=== PATIENT | female | born 1930 | race Caucasian/White ===

== ENCOUNTER 2018-03-14 17:35 | Inpatient (IN) | payer MEDICARE ==
[~2018-03-14] VITALS: Ht 162.6 cm; Wt 54.6 kg
[2018-03-14 18:41] LABS: BACTERIA,URINE MOD /HPF (0-FEW); BILIRUBIN,URINE NEG (NEG); CLARITY,URINE HAZY; COLOR,URINE YELLOW; GLUCOSE,URINE NEG (NEG); NITRITE,URINE NEG (NEG); RBC,URINE 0 /HPF (0-2); SQUAMOUS EPITHELIAL CELL,UR OCC /LPF; UROBILINOGEN,URINE 2 mg/dL (0.2 mg/dL)
[2018-03-14 19:22] LABS: BASO # 0.1 x10^3/uL (0.0-0.2); BASO % 1 % (0-3); EOS # 0.2 x10^3/uL (0.0-0.7); EOS % 2 % (0-3); HEMATOCRIT 34.3 % (36.0-47.0); HEMOGLOBIN 11.2 g/dL (12.0-15.5); LYMPH # 3.2 x10^3/uL (1.0-4.8); LYMPH % 35 % (24-48); MEAN CORPUSCULAR HEMOGLOBIN 30 pg (25-35); MEAN CORPUSCULAR HGB CONC 33 g/dL (31-37); MEAN CORPUSCULAR VOLUME 93 fL (79-100); MONO # 0.8 x10^3/uL (0.0-1.1); MONO % 9 % (0-9); NEUT # 4.8 x10^3uL (1.8-7.7); NEUT % 53 % (31-73); PLATELET COUNT 262 x10^3/uL (140-400); RED CELL DISTRIBUTION WIDTH 14.1 % (11.5-14.5); WHITE BLOOD COUNT 9.1 x10^3/uL (4.0-11.0)
[2018-03-14 19:30] LABS: CALCIUM 9.2 mg/dL (8.5-10.1); CREATININE 1.6 mg/dL (0.6-1.0); GFR 30.6; MAGNESIUM 2.4 mg/dL (1.8-2.4); POTASSIUM 4.2 mmol/L (3.5-5.1)
[2018-03-14] MEDS ORDERED: ACETAMINOPHEN 325 MG TABLET PO PRN ×2 (22:00→22:15)
[2018-03-14] MEDS ORDERED: MAG HYDROX/AL HYDROX/SIMETH 30 ML ORAL.SUSP PO PRN ×2 (22:00→22:15)
[2018-03-14] MEDS ORDERED: METHYL SALICYLATE/MENTHOL TOPICAL OINTMENT 29GM TUBE. TP PRN (22:00)
[2018-03-14 22:10] LABS: VAL ACID 33 mcg/mL (50-100)
[2018-03-14] MEDS ORDERED: MEMA1CAP3 PO (22:10)
[2018-03-14] MEDS ORDERED: SACC250C PO (22:10)
[2018-03-14] MEDS ORDERED: [UNRECOGNIZED DRUG - CODE] PO (22:10)
[2018-03-14] MEDS ORDERED: QUET25TA5 PO (22:10)
[2018-03-14] MEDS ORDERED: LORA0.5T96 PO (22:10)
[2018-03-14] MEDS ORDERED: AMLO10TA4 PO (22:10)
[2018-03-14] MEDS ORDERED: BENZ1LOZ48 MM (22:10)
[2018-03-14] MEDS ORDERED: MAG-27 PO (22:10)
[2018-03-14] MEDS ORDERED: ACET325T9 PO (22:10)
[2018-03-14] MEDS ORDERED: DIVA125C2 PO ×2 (22:10)
[2018-03-14] MEDS ORDERED: SIME80TA14 PO (22:10)
[2018-03-14] MEDS ORDERED: METO-239 PO (22:10)
[2018-03-14] MEDS ORDERED: ACET500T68 PO (22:10)
[2018-03-14] MEDS ORDERED: ESOM40CA PO (22:10)
[2018-03-14] MEDS ORDERED: BENZOCAINE/MENTHOL LOZNGE 18'S BOX. MM PRN (22:15)
[2018-03-14] MEDS ORDERED: SIMETHICONE 80 MG TAB.CHEW PO PRN (22:15)
[2018-03-14] MEDS: DIVALPROEX 125 MG CAP.SPRINK PO SCH (22:47)
[2018-03-14] MEDS: ACETAMINOPHEN 500 MG TABLET PO SCH (22:47)
[2018-03-14 23:05] VITALS: BP 180/71
[2018-03-14 23:40] VITALS: BP 115/55
--- NOTE | 2018-03-15 00:30 | ED.ADGEN ---
Past History Past Medical History: Dementia, GERD, Hypertension Past Surgical History: No Surgical History Alcohol Use: None Drug Use: None Adult General Chief Complaint Chief Complaint agitation HPI HPI Patient is a 87 yo with history of dementia who [facility] with [facility] for medical clearance for psychiatric admission. Patient resides in a memory unit is parent with been aggressive and verbally insulting towards fellow patients and staff members which is unusual for patient. Recent changes in medications. No recent illnesses or hospitalizations. H/o limited due to dementia. Additional history obtained by at bedside.[] Review of Systems Review of Systems ROS as per HPI limited due to dementia All other systems were reviewed and found to be within normal limits, except as documented in this note. Allergies Allergies Allergies Coded Allergies Type Severity Reaction Last Updated Verified No Known Drug Allergies 03/14/18 No Physical Exam Physical Exam Constitutional: Well developed, well nourished, no acute distress, non-toxic appearance. [] HENT: Normocephalic, atraumatic, bilateral external ears normal, oropharynx moist. [] Eyes: PERRLA, EOMI, conjunctiva normal. [] Neck: Normal range of motion. [] Cardiovascular:Heart rate regular rhythm. [] Lungs & Thorax: Bilateral breath sounds clear to auscultation [] Abdomen: Bowel sounds normal, soft. [] Skin: Warm, dry, no erythema, no rash. [] Back: No tenderness. [] Neurologic: Alert and oriented X 1, normal motor function, normal sensory function, no focal deficits noted. [] Psychologic: Affect normal, judgement normal, mood normal. [] Current Patient Data Vital Signs Vital Signs Date Time Temp Pulse Resp B/P (MAP) Pulse Ox O2 Delivery O2 Flow Rate FiO2 03/14/18 20:07 64 20 116/88 (97) 94 Room Air 03/14/18 17:40 98.0 Lab Results Laboratory Tests Test 03/14/18 17:48 03/14/18 19:04 Urine Collection Type Unknown Urine Color Yellow Urine Clarity Hazy Urine pH 5.5 Urine Specific Fifty Six 1.020 Urine Protein 30 mg/dl (NEG-TRACE) Urine Glucose (UA) Neg mg/dL (NEG) Urine Ketones (Stick) Trace mg/dL (NEG) Urine Blood Trace (NEG) Urine Nitrite Neg (NEG) Urine Bilirubin Neg (NEG) Urine Urobilinogen Dipstick 2 mg/dL (0.2 mg/dL) Urine Leukocyte Esterase Trace (NEG) Urine RBC 0 /HPF (0-2) Urine WBC 1-4 /HPF (0-4) Urine Squamous Epithelial Cells Occ /LPF Urine Bacteria Mod /HPF (0-FEW) White Blood Count 9.1 x10^3/uL (4.0-11.0) Red Blood Count 3.70 x10^6/uL (3.50-5.40) Hemoglobin 11.2 g/dL (12.0-15.5) L Hematocrit 34.3 % (36.0-47.0) L Mean Corpuscular Volume 93 fL (79-100) Mean Corpuscular Hemoglobin 30 pg (25-35) Mean Corpuscular Hemoglobin Concent 33 g/dL (31-37) Red Cell Distribution Width 14.1 % (11.5-14.5) Platelet Count 262 x10^3/uL (140-400) Neutrophils (%) (Auto) 53 % (31-73) Lymphocytes (%) (Auto) 35 % (24-48) Monocytes (%) (Auto) 9 % (0-9) Eosinophils (%) (Auto) 2 % (0-3) Basophils (%) (Auto) 1 % (0-3) Neutrophils # (Auto) 4.8 x10^3uL (1.8-7.7) Lymphocytes # (Auto) 3.2 x10^3/uL (1.0-4.8) Monocytes # (Auto) 0.8 x10^3/uL (0.0-1.1) Eosinophils # (Auto) 0.2 x10^3/uL (0.0-0.7) Basophils # (Auto) 0.1 x10^3/uL (0.0-0.2) Sodium Level 138 mmol/L (136-145) Potassium Level 4.2 mmol/L (3.5-5.1) Chloride Level 105 mmol/L (98-107) Carbon Dioxide Level 24 mmol/L (21-32) Anion Gap 9 (6-14) Blood Urea Nitrogen 28 mg/dL (7-20) H Creatinine 1.6 mg/dL (0.6-1.0) H Estimated GFR (Cockcroft-Gault) 30.6 Glucose Level 108 mg/dL (70-99) H Calcium Level 9.2 mg/dL (8.5-10.1) Magnesium Level 2.4 mg/dL (1.8-2.4) Valproic Acid Level 33 mcg/mL (50-100) L Valproic Acid Last Dose Date 03/14/18 Valproic Acid Last Dose Time 1600 EKG EKG [EKG: reviewed] Radiology/Procedures Radiology/Procedures [] Course & Med Decision Making Course & Med Decision Making Pertinent Labs and Imaging studies reviewed. (See chart for details) [Patient medically stable for hospital admission.] Final Impression Final Impression [1. Medical evaluation for psychiatric hospital admission ] Dragon Disclaimer Dragon Disclaimer This electronic medical record was generated, in whole or in part, using a voice recognition dictation system. CRISTINA WEISS DO Mar 15, 2018 00:30
[2018-03-15 05:55] VITALS: BP 159/70
[2018-03-15] MEDS: PANTOPRAZOLE 40 MG TABLET. PO SCH ×2 (07:30→11:40)
[2018-03-15] MEDS: DONEPEZIL HCL 10 MG TABLET PO SCH ×2 (09:00→11:39)
[2018-03-15] MEDS: LACTOBACILLUS RHAMNOSUS GG 1 CAPSULE. PO SCH ×2 (09:00→11:39)
[2018-03-15] MEDS: MEMANTINE 10 MG TABLET. PO SCH ×3 (09:00→20:10)
[2018-03-15] MEDS: QUEtiapine 25 MG TABLET. PO SCH ×2 (09:00→11:39)
--- NOTE | 2018-03-15 09:32 | EKG ---
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
[2018-03-15] MEDS: LACTASE 3,000 UNIT TABLET PO PRN (11:38)
[2018-03-15] MEDS: amLODIPine BESYLATE 10 MG TABLET PO SCH (11:39)
[2018-03-15] MEDS: ACETAMINOPHEN 500 MG TABLET PO SCH ×3 (11:39→20:10)
[2018-03-15] MEDS: METOPROLOL SUCC 24HR ER 25 MG TAB.ER.24H. PO SCH (11:40)
[2018-03-15] MEDS: DIVALPROEX 125 MG CAP.SPRINK PO SCH ×2 (15:11→20:09)
[2018-03-15 16:52] VITALS: BP 151/63
[2018-03-15] MEDS: LORazepam 0.5 MG TABLET PO PRN (20:11)
--- NOTE | 2018-03-15 21:11 | PDOC ---
Exam Note: Zhang Note: Please also refer to the separate dictated note~for this date of service dictated separately.~Patient seen individually. Discussed the patient with Nursing staff reviewed the chart.~Reviewed interim history and current functioning. Reviewed vital signs,~Labs/ Radiology~and current medications noted below. Continue current treatment with the changes noted in the dictated addendum note Assessment: Vital Signs: Vital Signs Date Time Temp Pulse Resp B/P (MAP) Pulse Ox O2 Delivery O2 Flow Rate FiO2 03/15/18 16:52 99.4 62 16 151/63 (92) 95 Room Air I&O Intake and Output 03/15/18 07:00 Intake Total 0 ml Balance 0 ml Intake Oral 0 ml # Voids 1 # Bowel Movements 1 Current Medications: Meds: Current Medications Acetaminophen (Tylenol) 650 mg PRN Q6HRS PRN PO PAIN / TEMP; Start 03/14/18 at 22:00; Stop 03/14/18 at 22:25; Status DC Multi-Ingredient Ointment (Analgesic [place]) 1 noy PRN QID PRN TP MUSCLE PAIN; Start 03/14/18 at 22:00 Al Hydroxide/Mg Hydroxide (Mylanta Plus Xs) 15 ml PRN AFTMEALHC PRN PO DYSPEPSIA; Start 03/14/18 at 22:00; Stop 03/14/18 at 22:25; Status DC Magnesium Hydroxide (Milk Of Magnesia) 2,400 mg PRN QHS PRN PO CONSTIPATION; Start 03/14/18 at 22:00 Divalproex Sodium (Depakote Sprinkles) 125 mg DAILY@1600 PO Last administered on 03/15/18at 15:11; Start 03/15/18 at 16:00 Divalproex Sodium (Depakote Sprinkles) 250 mg QHS PO Last administered on at 20:09; Start 03/14/18 at 23:00 Lorazepam (Ativan) 0.5 mg PRN BID PRN PO ANXIETY / AGITATION Last administered on 03/15/18at 20:11; Start 03/14/18 at 22:30 Memantine (Namenda) 10 mg BID PO Last administered on 03/15/18at 20:10; Start at 09:00 Quetiapine Fumarate (SEROquel) 25 mg DAILY PO ; Start 03/15/18 at 09:00 Acetaminophen (Tylenol) 650 mg PRN Q4HRS PRN PO PAIN / TEMP; Start 03/14/18 at 22:15 Throat Lozenges (Cepacol Sore Throat Lozenge) 1 pedro PRN Q2HR PRN MM SORE THROAT ; Start 03/14/18 at 22:15 Metoprolol Succinate (Toprol Xl) 25 mg DAILY PO Last administered on 03/15/18at 11:40; Start 03/15/18 at 09:00 Simethicone (Gas-X) 80 mg PRN Q6HRS PRN PO GAS / BLOATING; Start 03/14/18 at 22 :15 Acetaminophen (Tylenol) 500 mg TID PO Last administered on 03/15/18at 20:10; Start 03/14/18 at 23:00 Amlodipine Besylate (Norvasc) 10 mg DAILY PO Last administered on 03/15/18at 11: 39; Start 03/15/18 at 09:00 Lactase (Lactaid) 9,000 unit TIDAC PRN PO GI SYMPTOMS Last administered on 03/15at 11:38; Start 03/14/18 at 22:15 Al Hydroxide/Mg Hydroxide (Mylanta Plus Xs) 30 ml PRN Q6HRS PRN PO DYSPEPSIA; Start 03/14/18 at 22:15 Pantoprazole Sodium (Protonix) 40 mg DAILYAC PO ; Start 03/15/18 at 07:30 Lactobacillus Rhamnosus (Culturelle) 1 cap DAILY PO ; Start 03/15/18 at 09:00 Donepezil HCl (Aricept) 10 mg DAILY PO ; Start 03/15/18 at 09:00 Influenza Virus Vaccine (Afluria Trivalent [id number] Syringe) 0.5 ml ONCE ONCE VAX IM Last administered on 03/15/18at 15:31; Start 03/15/18 at 14:15; Stop at 14:21; Status DC Active Scripts Active Reported Florastor (Saccharomyces Boulardii) 250 Mg Capsule 250 Mg PO DAILY Dairy Digest (Lactase) 9,000 Unit Tablet 9,000 Unit PO TIDAC Nexium Capsule (Esomeprazole Magnesium) 40 Mg Capsule.dr 40 Mg PO BID Namzaric 28 mg-10 mg Capsule (Memantine HCl/Donepezil HCl) 1 Each Cap.spr.24 1 Each PO DAILY Acetaminophen 500 Mg Tablet 1,000 Mg PO TID Rosalia-Lanta Liquid (Mag Hydrox/Al Hydrox/Simeth) 355 Ml Oral.susp 30 Ml PO PRN Q6HRS PRN Simethicone 80 Mg Tab.chew 80 Mg PO PRN Q6HRS PRN Cepacol Sore Throat Lozenge (Benzocaine/Menthol) 1 Each Lozenge 1 Each MM PRN Q2HR PRN Tylenol (Acetaminophen) 325 Mg Tablet 650 Mg PO PRN Q4HRS PRN Norvasc (Amlodipine Besylate) 10 Mg Tablet 10 Mg PO DAILY Metoprolol Succinate ( Xl ) (Metoprolol Succinate) 25 Mg Tab.er.24h 25 Mg PO DAILY Seroquel (Quetiapine Fumarate) 25 Mg Tablet 25 Mg PO DAILY Depakote Sprinkle (Divalproex Sodium) 125 Mg Cap.sprink 250 Mg PO QHS Depakote Sprinkle (Divalproex Sodium) 125 Mg Cap.sprink 125 Mg PO DAILY@1600 Ativan (Lorazepam) 0.5 Mg Tablet 0.5 Mg PO PRN BID PRN I have reviewed the current psychotropics carefully including drug interactions. Risk benefit ratio favors no change other than as noted in my dictated progress note. 

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
[2018-03-16 05:49] VITALS: BP 178/75
[2018-03-16] MEDS: amLODIPine BESYLATE 10 MG TABLET PO SCH (11:38)
[2018-03-16] MEDS: ACETAMINOPHEN 500 MG TABLET PO SCH ×3 (11:39→20:27)
[2018-03-16] MEDS: DONEPEZIL HCL 10 MG TABLET PO SCH (11:39)
[2018-03-16] MEDS: METOPROLOL SUCC 24HR ER 25 MG TAB.ER.24H. PO SCH (11:39)
[2018-03-16] MEDS: QUEtiapine 25 MG TABLET. PO SCH (11:39)
[2018-03-16] MEDS: LACTOBACILLUS RHAMNOSUS GG 1 CAPSULE. PO SCH (11:39)
[2018-03-16] MEDS: MEMANTINE 10 MG TABLET. PO SCH ×2 (11:39→20:28)
[2018-03-16] MEDS: PANTOPRAZOLE 40 MG TABLET. PO SCH (11:39)
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
[2018-03-16] MEDS: DIVALPROEX 125 MG CAP.SPRINK PO SCH ×2 (15:36→20:25)
[2018-03-16 16:49] VITALS: BP 143/69
[2018-03-16] MEDS: MIRTAZAPINE 7.5 MG TABLET. PO SCH (20:28)
--- NOTE | 2018-03-16 20:45 | PDOC ---
Exam Note: Zhang Note: Please also refer to the separate dictated note~for this date of service dictated separately.~Patient seen individually. Discussed the patient with Nursing staff reviewed the chart.~Reviewed interim history and current functioning. Reviewed vital signs,~Labs/ Radiology~and current medications noted below. Continue current treatment with the changes noted in the dictated addendum note Assessment: Vital Signs: Vital Signs Date Time Temp Pulse Resp B/P (MAP) Pulse Ox O2 Delivery O2 Flow Rate FiO2 03/16/18 16:49 97.6 60 18 143/69 (93) 96 03/15/18 16:52 Room Air I&O Intake and Output 03/16/18 07:00 Intake Total 480 ml Balance 480 ml Intake Oral 480 ml # Voids 1 Current Medications: Meds: Current Medications Acetaminophen (Tylenol) 650 mg PRN Q6HRS PRN PO PAIN / TEMP; Start 03/14/18 at 22:00; Stop 03/14/18 at 22:25; Status DC Multi-Ingredient Ointment (Analgesic [place]) 1 noy PRN QID PRN TP MUSCLE PAIN; Start 03/14/18 at 22:00 Al Hydroxide/Mg Hydroxide (Mylanta Plus Xs) 15 ml PRN AFTMEALHC PRN PO DYSPEPSIA; Start 03/14/18 at 22:00; Stop 03/14/18 at 22:25; Status DC Magnesium Hydroxide (Milk Of Magnesia) 2,400 mg PRN QHS PRN PO CONSTIPATION; Start 03/14/18 at 22:00 Divalproex Sodium (Depakote Sprinkles) 125 mg DAILY@1600 PO Last administered on 03/16/18at 15:36; Start 03/15/18 at 16:00; Stop 03/16/18 at 17:18; Status DC Divalproex Sodium (Depakote Sprinkles) 250 mg QHS PO Last administered on at 20:25; Start 03/14/18 at 23:00 Lorazepam (Ativan) 0.5 mg PRN BID PRN PO ANXIETY / AGITATION Last administered on 03/15/18at 20:11; Start 03/14/18 at 22:30 Memantine (Namenda) 10 mg BID PO Last administered on 03/16/18at 20:28; Start at 09:00 Quetiapine Fumarate (SEROquel) 25 mg DAILY PO Last administered on 03/16/18 11 :39; Start 03/15/18 at 09:00 Acetaminophen (Tylenol) 650 mg PRN Q4HRS PRN PO PAIN / TEMP; Start 03/14/18 at 22:15 Throat Lozenges (Cepacol Sore Throat Lozenge) 1 pedro PRN Q2HR PRN MM SORE THROAT ; Start 03/14/18 at 22:15 Metoprolol Succinate (Toprol Xl) 25 mg DAILY PO Last administered on 03/16/18at 11:39; Start 03/15/18 at 09:00 Simethicone (Gas-X) 80 mg PRN Q6HRS PRN PO GAS / BLOATING; Start 03/14/18 at 22 :15 Acetaminophen (Tylenol) 500 mg TID PO Last administered on 03/16/18 20:27; Start 03/14/18 at 23:00 Amlodipine Besylate (Norvasc) 10 mg DAILY PO Last administered on 03/16/18at 11: 38; Start 03/15/18 at 09:00 Lactase (Lactaid) 9,000 unit TIDAC PRN PO GI SYMPTOMS Last administered on 03/15 11:38; Start 03/14/18 at 22:15 Al Hydroxide/Mg Hydroxide (Mylanta Plus Xs) 30 ml PRN Q6HRS PRN PO DYSPEPSIA; Start 03/14/18 at 22:15 Pantoprazole Sodium (Protonix) 40 mg DAILYAC PO Last administered on 03/16/18at 11:39; Start 03/15/18 at 07:30 Lactobacillus Rhamnosus (Culturelle) 1 cap DAILY PO Last administered on at 11:39; Start 03/15/18 at 09:00 Donepezil HCl (Aricept) 10 mg DAILY PO Last administered on 03/16/18at 11:39; Start 03/15/18 at 09:00 Influenza Virus Vaccine (Afluria Trivalent [id number] Syringe) 0.5 ml ONCE ONCE VAX IM Last administered on 03/15/18at 15:31; Start 03/15/18 at 14:15; Stop at 14:21; Status DC Divalproex Sodium (Depakote Sprinkles) 250 mg DAILY@1600 PO ; Start 03/17/18 at 16:00 Mirtazapine (Remeron) 7.5 mg QHS PO Last administered on 03/16/18at 20:28; Start 03/16/18 at 21:00 Divalproex Sodium (Depakote Sprinkles) 125 mg DAILY PO ; Start 03/17/18 at 09:00 Active Scripts Active Reported Florastor (Saccharomyces Boulardii) 250 Mg Capsule 250 Mg PO DAILY Dairy Digest (Lactase) 9,000 Unit Tablet 9,000 Unit PO TIDAC Nexium Capsule (Esomeprazole Magnesium) 40 Mg Capsule.dr 40 Mg PO BID Namzaric 28 mg-10 mg Capsule (Memantine HCl/Donepezil HCl) 1 Each Cap.spr.24 1 Each PO DAILY Acetaminophen 500 Mg Tablet 1,000 Mg PO TID Rosalia-Lanta Liquid (Mag Hydrox/Al Hydrox/Simeth) 355 Ml Oral.susp 30 Ml PO PRN Q6HRS PRN Simethicone 80 Mg Tab.chew 80 Mg PO PRN Q6HRS PRN Cepacol Sore Throat Lozenge (Benzocaine/Menthol) 1 Each Lozenge 1 Each MM PRN Q2HR PRN Tylenol (Acetaminophen) 325 Mg Tablet 650 Mg PO PRN Q4HRS PRN Norvasc (Amlodipine Besylate) 10 Mg Tablet 10 Mg PO DAILY Metoprolol Succinate ( Xl ) (Metoprolol Succinate) 25 Mg Tab.er.24h 25 Mg PO DAILY Seroquel (Quetiapine Fumarate) 25 Mg Tablet 25 Mg PO DAILY Depakote Sprinkle (Divalproex Sodium) 125 Mg Cap.sprink 250 Mg PO QHS Depakote Sprinkle (Divalproex Sodium) 125 Mg Cap.sprink 125 Mg PO DAILY@1600 Ativan (Lorazepam) 0.5 Mg Tablet 0.5 Mg PO PRN BID PRN I have reviewed the current psychotropics carefully including drug interactions. Risk benefit ratio favors no change other than as noted in my dictated progress note. 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
[2018-03-17 06:21] VITALS: BP 160/76
[2018-03-17] MEDS: PANTOPRAZOLE 40 MG TABLET. PO SCH (07:57)
[2018-03-17] MEDS: LACTASE 3,000 UNIT TABLET PO PRN (07:57)
[2018-03-17] MEDS: amLODIPine BESYLATE 10 MG TABLET PO SCH (07:57)
[2018-03-17] MEDS: MEMANTINE 10 MG TABLET. PO SCH ×2 (07:58→19:32)
[2018-03-17] MEDS: DONEPEZIL HCL 10 MG TABLET PO SCH (07:58)
[2018-03-17] MEDS: QUEtiapine 25 MG TABLET. PO SCH (07:58)
[2018-03-17] MEDS: ACETAMINOPHEN 500 MG TABLET PO SCH ×3 (07:58→19:32)
[2018-03-17] MEDS: METOPROLOL SUCC 24HR ER 25 MG TAB.ER.24H. PO SCH (07:58)
[2018-03-17] MEDS: LACTOBACILLUS RHAMNOSUS GG 1 CAPSULE. PO SCH (07:59)
[2018-03-17] MEDS: DIVALPROEX 125 MG CAP.SPRINK PO SCH ×3 (08:04→19:32)
[2018-03-17 16:48] VITALS: BP 148/71
[2018-03-17] MEDS: MIRTAZAPINE 7.5 MG TABLET. PO SCH (19:32)
[2018-03-17] MEDS: LORazepam 0.5 MG TABLET PO PRN (20:26)
--- NOTE | 2018-03-17 20:49 | PDOC ---
Exam Note: Zhang Note: Please also refer to the separate dictated note~for this date of service dictated separately.~Patient seen individually. Discussed the patient with Nursing staff reviewed the chart.~Reviewed interim history and current functioning. Reviewed vital signs,~Labs/ Radiology~and current medications noted below. Continue current treatment with the changes noted in the dictated addendum note Assessment: Vital Signs: Vital Signs Date Time Temp Pulse Resp B/P (MAP) Pulse Ox O2 Delivery O2 Flow Rate FiO2 03/17/18 16:48 97.8 64 20 148/71 (96) 97 03/15/18 16:52 Room Air I&O Intake and Output 03/17/18 07:00 Intake Total 360 ml Balance 360 ml Intake Oral 360 ml # Voids 1 # Bowel Movements 2 Current Medications: Meds: Current Medications Acetaminophen (Tylenol) 650 mg PRN Q6HRS PRN PO PAIN / TEMP; Start 03/14/18 at 22:00; Stop 03/14/18 at 22:25; Status DC Multi-Ingredient Ointment (Analgesic [place]) 1 noy PRN QID PRN TP MUSCLE PAIN; Start 03/14/18 at 22:00 Al Hydroxide/Mg Hydroxide (Mylanta Plus Xs) 15 ml PRN AFTMEALHC PRN PO DYSPEPSIA; Start 03/14/18 at 22:00; Stop 03/14/18 at 22:25; Status DC Magnesium Hydroxide (Milk Of Magnesia) 2,400 mg PRN QHS PRN PO CONSTIPATION; Start 03/14/18 at 22:00 Divalproex Sodium (Depakote Sprinkles) 125 mg DAILY@1600 PO Last administered on 03/16/18at 15:36; Start 03/15/18 at 16:00; Stop 03/16/18 at 17:18; Status DC Divalproex Sodium (Depakote Sprinkles) 250 mg QHS PO Last administered on at 19:32; Start 03/14/18 at 23:00 Lorazepam (Ativan) 0.5 mg PRN BID PRN PO ANXIETY / AGITATION Last administered on 03/17/18at 20:26; Start 03/14/18 at 22:30 Memantine (Namenda) 10 mg BID PO Last administered on 03/17/18at 19:32; Start at 09:00 Quetiapine Fumarate (SEROquel) 25 mg DAILY PO Last administered on 03/17/18at 07 :58; Start 03/15/18 at 09:00 Acetaminophen (Tylenol) 650 mg PRN Q4HRS PRN PO PAIN / TEMP; Start 03/14/18 at 22:15 Throat Lozenges (Cepacol Sore Throat Lozenge) 1 pedro PRN Q2HR PRN MM SORE THROAT ; Start 03/14/18 at 22:15 Metoprolol Succinate (Toprol Xl) 25 mg DAILY PO Last administered on 03/17/18at 07:58; Start 03/15/18 at 09:00 Simethicone (Gas-X) 80 mg PRN Q6HRS PRN PO GAS / BLOATING; Start 03/14/18 at 22 :15 Acetaminophen (Tylenol) 500 mg TID PO Last administered on 03/17/18at 19:32; Start 03/14/18 at 23:00 Amlodipine Besylate (Norvasc) 10 mg DAILY PO Last administered on 03/17/18at 07: 57; Start 03/15/18 at 09:00 Lactase (Lactaid) 9,000 unit TIDAC PRN PO GI SYMPTOMS Last administered on 03/17 07:57; Start 03/14/18 at 22:15 Al Hydroxide/Mg Hydroxide (Mylanta Plus Xs) 30 ml PRN Q6HRS PRN PO DYSPEPSIA; Start 03/14/18 at 22:15 Pantoprazole Sodium (Protonix) 40 mg DAILYAC PO Last administered on 03/17/18at 07:57; Start 03/15/18 at 07:30 Lactobacillus Rhamnosus (Culturelle) 1 cap DAILY PO Last administered on at 07:59; Start 03/15/18 at 09:00 Donepezil HCl (Aricept) 10 mg DAILY PO Last administered on 03/17/18at 07:58; Start 03/15/18 at 09:00 Influenza Virus Vaccine (Afluria Trivalent [id number] Syringe) 0.5 ml ONCE ONCE VAX IM Last administered on 03/15/18at 15:31; Start 03/15/18 at 14:15; Stop at 14:21; Status DC Divalproex Sodium (Depakote Sprinkles) 250 mg DAILY@1600 PO Last administered on 03/17/18at 18:22; Start 03/17/18 at 16:00 Mirtazapine (Remeron) 7.5 mg QHS PO Last administered on 03/17/18at 19:32; Start 03/16/18 at 21:00 Divalproex Sodium (Depakote Sprinkles) 125 mg DAILY PO Last administered on at 08:04; Start 03/17/18 at 09:00 Sertraline HCl (Zoloft) 25 mg DAILY PO ; Start 03/18/18 at 09:00 Active Scripts Active Reported Florastor (Saccharomyces Boulardii) 250 Mg Capsule 250 Mg PO DAILY Dairy Digest (Lactase) 9,000 Unit Tablet 9,000 Unit PO TIDAC Nexium Capsule (Esomeprazole Magnesium) 40 Mg Capsule.dr 40 Mg PO BID Namzaric 28 mg-10 mg Capsule (Memantine HCl/Donepezil HCl) 1 Each Cap.spr.24 1 Each PO DAILY Acetaminophen 500 Mg Tablet 1,000 Mg PO TID Rosalia-Lanta Liquid (Mag Hydrox/Al Hydrox/Simeth) 355 Ml Oral.susp 30 Ml PO PRN Q6HRS PRN Simethicone 80 Mg Tab.chew 80 Mg PO PRN Q6HRS PRN Cepacol Sore Throat Lozenge (Benzocaine/Menthol) 1 Each Lozenge 1 Each MM PRN Q2HR PRN Tylenol (Acetaminophen) 325 Mg Tablet 650 Mg PO PRN Q4HRS PRN Norvasc (Amlodipine Besylate) 10 Mg Tablet 10 Mg PO DAILY Metoprolol Succinate ( Xl ) (Metoprolol Succinate) 25 Mg Tab.er.24h 25 Mg PO DAILY Seroquel (Quetiapine Fumarate) 25 Mg Tablet 25 Mg PO DAILY Depakote Sprinkle (Divalproex Sodium) 125 Mg Cap.sprink 250 Mg PO QHS Depakote Sprinkle (Divalproex Sodium) 125 Mg Cap.sprink 125 Mg PO DAILY@1600 Ativan (Lorazepam) 0.5 Mg Tablet 0.5 Mg PO PRN BID PRN I have reviewed the current psychotropics carefully including drug interactions. Risk benefit ratio favors no change other than as noted in my dictated progress note. 

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
[2018-03-18 06:45] VITALS: BP 144/69
[2018-03-18] MEDS: LACTASE 3,000 UNIT TABLET PO PRN (08:00)
[2018-03-18] MEDS: PANTOPRAZOLE 40 MG TABLET. PO SCH (08:01)
[2018-03-18] MEDS: ACETAMINOPHEN 500 MG TABLET PO SCH ×3 (08:01→20:14)
[2018-03-18] MEDS: QUEtiapine 25 MG TABLET. PO SCH (08:01)
[2018-03-18] MEDS: DIVALPROEX 125 MG CAP.SPRINK PO SCH ×3 (08:01→20:13)
[2018-03-18] MEDS: LACTOBACILLUS RHAMNOSUS GG 1 CAPSULE. PO SCH (08:01)
[2018-03-18] MEDS: DONEPEZIL HCL 10 MG TABLET PO SCH (08:01)
[2018-03-18] MEDS: MEMANTINE 10 MG TABLET. PO SCH ×2 (08:01→20:13)
[2018-03-18] MEDS: amLODIPine BESYLATE 10 MG TABLET PO SCH (08:01)
[2018-03-18] MEDS: METOPROLOL SUCC 24HR ER 25 MG TAB.ER.24H. PO SCH (08:01)
[2018-03-18] MEDS: SERTRALINE 25 MG TABLET. PO SCH (08:03)
[2018-03-18 16:25] VITALS: BP 153/50
[2018-03-18] MEDS: MIRTAZAPINE 7.5 MG TABLET. PO SCH (20:13)
--- NOTE | 2018-03-18 23:02 | PDOC ---
Exam Note: Zhang Note: Please also refer to the separate dictated note~for this date of service dictated separately.~Patient seen individually. Discussed the patient with Nursing staff reviewed the chart.~Reviewed interim history and current functioning. Reviewed vital signs,~Labs/ Radiology~and current medications noted below. Continue current treatment with the changes noted in the dictated addendum note Assessment: Vital Signs: Vital Signs Date Time Temp Pulse Resp B/P (MAP) Pulse Ox O2 Delivery O2 Flow Rate FiO2 03/18/18 16:25 98.4 61 16 153/50 (84) 94 03/15/18 16:52 Room Air I&O Intake and Output 03/18/18 07:00 Intake Total 540 ml Balance 540 ml Intake Oral 540 ml # Bowel Movements 1 Current Medications: Meds: Current Medications Acetaminophen (Tylenol) 650 mg PRN Q6HRS PRN PO PAIN / TEMP; Start 03/14/18 at 22:00; Stop 03/14/18 at 22:25; Status DC Multi-Ingredient Ointment (Analgesic [place]) 1 noy PRN QID PRN TP MUSCLE PAIN; Start 03/14/18 at 22:00 Al Hydroxide/Mg Hydroxide (Mylanta Plus Xs) 15 ml PRN AFTMEALHC PRN PO DYSPEPSIA; Start 03/14/18 at 22:00; Stop 03/14/18 at 22:25; Status DC Magnesium Hydroxide (Milk Of Magnesia) 2,400 mg PRN QHS PRN PO CONSTIPATION; Start 03/14/18 at 22:00 Divalproex Sodium (Depakote Sprinkles) 125 mg DAILY@1600 PO Last administered on 03/16/18at 15:36; Start 03/15/18 at 16:00; Stop 03/16/18 at 17:18; Status DC Divalproex Sodium (Depakote Sprinkles) 250 mg QHS PO Last administered on at 20:13; Start 03/14/18 at 23:00 Lorazepam (Ativan) 0.5 mg PRN BID PRN PO ANXIETY / AGITATION Last administered on 03/17/18at 20:26; Start 03/14/18 at 22:30 Memantine (Namenda) 10 mg BID PO Last administered on 03/18/18at 20:13; Start at 09:00 Quetiapine Fumarate (SEROquel) 25 mg DAILY PO Last administered on 03/18/18 08 :01; Start 03/15/18 at 09:00 Acetaminophen (Tylenol) 650 mg PRN Q4HRS PRN PO PAIN / TEMP; Start 03/14/18 at 22:15 Throat Lozenges (Cepacol Sore Throat Lozenge) 1 pedro PRN Q2HR PRN MM SORE THROAT ; Start 03/14/18 at 22:15 Metoprolol Succinate (Toprol Xl) 25 mg DAILY PO Last administered on 03/18/18 08:01; Start 03/15/18 at 09:00 Simethicone (Gas-X) 80 mg PRN Q6HRS PRN PO GAS / BLOATING; Start 03/14/18 at 22 :15 Acetaminophen (Tylenol) 500 mg TID PO Last administered on 03/18/18at 20:14; Start 03/14/18 at 23:00 Amlodipine Besylate (Norvasc) 10 mg DAILY PO Last administered on 03/18/18 08: 01; Start 03/15/18 at 09:00 Lactase (Lactaid) 9,000 unit TIDAC PRN PO GI SYMPTOMS Last administered on 03/18 08:00; Start 03/14/18 at 22:15 Al Hydroxide/Mg Hydroxide (Mylanta Plus Xs) 30 ml PRN Q6HRS PRN PO DYSPEPSIA; Start 03/14/18 at 22:15 Pantoprazole Sodium (Protonix) 40 mg DAILYAC PO Last administered on 03/18/18 08:01; Start 03/15/18 at 07:30 Lactobacillus Rhamnosus (Culturelle) 1 cap DAILY PO Last administered on at 08:01; Start 03/15/18 at 09:00 Donepezil HCl (Aricept) 10 mg DAILY PO Last administered on 03/18/18 08:01; Start 03/15/18 at 09:00 Influenza Virus Vaccine (Afluria Trivalent [id number] Syringe) 0.5 ml ONCE ONCE VAX IM Last administered on 03/15/18at 15:31; Start 03/15/18 at 14:15; Stop at 14:21; Status DC Divalproex Sodium (Depakote Sprinkles) 250 mg DAILY@1600 PO Last administered on 03/17/18at 18:22; Start 03/17/18 at 16:00 Mirtazapine (Remeron) 7.5 mg QHS PO Last administered on 03/18/18at 20:13; Start 03/16/18 at 21:00 Divalproex Sodium (Depakote Sprinkles) 125 mg DAILY PO Last administered on at 08:01; Start 03/17/18 at 09:00 Sertraline HCl (Zoloft) 25 mg DAILY PO Last administered on 03/18/18at 08:03; Start 03/18/18 at 09:00 Active Scripts Active Reported Florastor (Saccharomyces Boulardii) 250 Mg Capsule 250 Mg PO DAILY Dairy Digest (Lactase) 9,000 Unit Tablet 9,000 Unit PO TIDAC Nexium Capsule (Esomeprazole Magnesium) 40 Mg Capsule.dr 40 Mg PO BID Namzaric 28 mg-10 mg Capsule (Memantine HCl/Donepezil HCl) 1 Each Cap.spr.24 1 Each PO DAILY Acetaminophen 500 Mg Tablet 1,000 Mg PO TID Rosalia-Lanta Liquid (Mag Hydrox/Al Hydrox/Simeth) 355 Ml Oral.susp 30 Ml PO PRN Q6HRS PRN Simethicone 80 Mg Tab.chew 80 Mg PO PRN Q6HRS PRN Cepacol Sore Throat Lozenge (Benzocaine/Menthol) 1 Each Lozenge 1 Each MM PRN Q2HR PRN Tylenol (Acetaminophen) 325 Mg Tablet 650 Mg PO PRN Q4HRS PRN Norvasc (Amlodipine Besylate) 10 Mg Tablet 10 Mg PO DAILY Metoprolol Succinate ( Xl ) (Metoprolol Succinate) 25 Mg Tab.er.24h 25 Mg PO DAILY Seroquel (Quetiapine Fumarate) 25 Mg Tablet 25 Mg PO DAILY Depakote Sprinkle (Divalproex Sodium) 125 Mg Cap.sprink 250 Mg PO QHS Depakote Sprinkle (Divalproex Sodium) 125 Mg Cap.sprink 125 Mg PO DAILY@1600 Ativan (Lorazepam) 0.5 Mg Tablet 0.5 Mg PO PRN BID PRN I have reviewed the current psychotropics carefully including drug interactions. Risk benefit ratio favors no change other than as noted in my dictated progress note. Diagnosis: Problems: (1) Medical clearance for psychiatric admission (2) Anxiety disorder (3) Dementia, vascular, with delusions (4) Dementia, vascular, with depression (5) Dementia in Alzheimer's disease with delusions (6) Dementia in Alzheimer's disease with depression (7) Impulse control disorder ANSON CORMIER MD Mar 18, 2018 23:02
[2018-03-19] MEDS: LORazepam 0.5 MG TABLET PO PRN (02:45)
[2018-03-19 06:22] VITALS: BP 162/89
[2018-03-19] MEDS: amLODIPine BESYLATE 10 MG TABLET PO SCH (07:52)
[2018-03-19] MEDS: ACETAMINOPHEN 500 MG TABLET PO SCH ×3 (07:52→20:08)
[2018-03-19] MEDS: LACTASE 3,000 UNIT TABLET PO PRN ×2 (07:52→18:35)
[2018-03-19] MEDS: MEMANTINE 10 MG TABLET. PO SCH ×2 (07:52→20:08)
[2018-03-19] MEDS: DONEPEZIL HCL 10 MG TABLET PO SCH (07:52)
[2018-03-19] MEDS: METOPROLOL SUCC 24HR ER 25 MG TAB.ER.24H. PO SCH (07:53)
[2018-03-19] MEDS: LACTOBACILLUS RHAMNOSUS GG 1 CAPSULE. PO SCH (07:53)
[2018-03-19] MEDS: DIVALPROEX 125 MG CAP.SPRINK PO SCH ×3 (07:53→20:08)
[2018-03-19] MEDS: SERTRALINE 25 MG TABLET. PO SCH (07:53)
[2018-03-19] MEDS: PANTOPRAZOLE 40 MG TABLET. PO SCH (07:53)
[2018-03-19] MEDS: QUEtiapine 25 MG TABLET. PO SCH (07:54)
[2018-03-19 16:35] VITALS: BP 151/70
[2018-03-19] MEDS ORDERED: traZODone 50 MG TABLET. PO PRN (17:15)
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
[2018-03-19] MEDS: AMOXICILLIN/K CLAV 500/125MG TABLET. PO SCH (20:11)
[2018-03-19] MEDS: MIRTAZAPINE 15 MG TABLET PO SCH (20:11)
--- NOTE | 2018-03-19 21:04 | PDOC ---
Exam Note: Zhang Note: Please also refer to the separate dictated note~for this date of service dictated separately.~Patient seen individually. Discussed the patient with Nursing staff reviewed the chart.~Reviewed interim history and current functioning. Reviewed vital signs,~Labs/ Radiology~and current medications noted below. Continue current treatment with the changes noted in the dictated addendum note Assessment: Vital Signs: Vital Signs Date Time Temp Pulse Resp B/P (MAP) Pulse Ox O2 Delivery O2 Flow Rate FiO2 03/19/18 16:35 97.9 57 18 151/70 (97) 94 03/19/18 06:22 Room Air I&O Intake and Output 03/19/18 07:00 Intake Total 600 ml Balance 600 ml Intake Oral 600 ml Current Medications: Meds: Current Medications Acetaminophen (Tylenol) 650 mg PRN Q6HRS PRN PO PAIN / TEMP; Start 03/14/18 at 22:00; Stop 03/14/18 at 22:25; Status DC Multi-Ingredient Ointment (Analgesic [place]) 1 noy PRN QID PRN TP MUSCLE PAIN; Start 03/14/18 at 22:00 Al Hydroxide/Mg Hydroxide (Mylanta Plus Xs) 15 ml PRN AFTMEALHC PRN PO DYSPEPSIA; Start 03/14/18 at 22:00; Stop 03/14/18 at 22:25; Status DC Magnesium Hydroxide (Milk Of Magnesia) 2,400 mg PRN QHS PRN PO CONSTIPATION; Start 03/14/18 at 22:00 Divalproex Sodium (Depakote Sprinkles) 125 mg DAILY@1600 PO Last administered on 03/16/18at 15:36; Start 03/15/18 at 16:00; Stop 03/16/18 at 17:18; Status DC Divalproex Sodium (Depakote Sprinkles) 250 mg QHS PO Last administered on at 20:08; Start 03/14/18 at 23:00 Lorazepam (Ativan) 0.5 mg PRN BID PRN PO ANXIETY / AGITATION Last administered on 03/19/18at 02:45; Start 03/14/18 at 22:30 Memantine (Namenda) 10 mg BID PO Last administered on 03/19/18at 20:08; Start at 09:00 Quetiapine Fumarate (SEROquel) 25 mg DAILY PO Last administered on 03/19/18 07 :54; Start 03/15/18 at 09:00 Acetaminophen (Tylenol) 650 mg PRN Q4HRS PRN PO PAIN / TEMP; Start 03/14/18 at 22:15 Throat Lozenges (Cepacol Sore Throat Lozenge) 1 pedro PRN Q2HR PRN MM SORE THROAT ; Start 03/14/18 at 22:15 Metoprolol Succinate (Toprol Xl) 25 mg DAILY PO Last administered on 03/19/18 07:53; Start 03/15/18 at 09:00 Simethicone (Gas-X) 80 mg PRN Q6HRS PRN PO GAS / BLOATING; Start 03/14/18 at 22 :15 Acetaminophen (Tylenol) 500 mg TID PO Last administered on 03/19/18 20:08; Start 03/14/18 at 23:00 Amlodipine Besylate (Norvasc) 10 mg DAILY PO Last administered on 03/19/18 07: 52; Start 03/15/18 at 09:00 Lactase (Lactaid) 9,000 unit TIDAC PRN PO GI SYMPTOMS Last administered on 03/19at 18:35; Start 03/14/18 at 22:15 Al Hydroxide/Mg Hydroxide (Mylanta Plus Xs) 30 ml PRN Q6HRS PRN PO DYSPEPSIA; Start 03/14/18 at 22:15 Pantoprazole Sodium (Protonix) 40 mg DAILYAC PO Last administered on 03/19/18 07:53; Start 03/15/18 at 07:30 Lactobacillus Rhamnosus (Culturelle) 1 cap DAILY PO Last administered on 07:53; Start 03/15/18 at 09:00 Donepezil HCl (Aricept) 10 mg DAILY PO Last administered on 03/19/18 07:52; Start 03/15/18 at 09:00 Influenza Virus Vaccine (Afluria Trivalent [id number] Syringe) 0.5 ml ONCE ONCE VAX IM Last administered on 03/15/18at 15:31; Start 03/15/18 at 14:15; Stop at 14:21; Status DC Divalproex Sodium (Depakote Sprinkles) 250 mg DAILY@1600 PO Last administered on 03/19/18at 18:35; Start 03/17/18 at 16:00 Mirtazapine (Remeron) 7.5 mg QHS PO Last administered on 03/18/18at 20:13; Start 03/16/18 at 21:00; Stop 03/19/18 at 17:04; Status DC Divalproex Sodium (Depakote Sprinkles) 125 mg DAILY PO Last administered on at 07:53; Start 03/17/18 at 09:00 Sertraline HCl (Zoloft) 25 mg DAILY PO Last administered on 03/19/18at 07:53; Start 03/18/18 at 09:00 Mirtazapine (Remeron) 15 mg QHS PO Last administered on 03/19/18at 20:11; Start 03/19/18 at 21:00 Trazodone HCl (Desyrel) 50 mg PRN QHS PRN PO INSOMNIA, MAY REPEAT X1; Start at 17:15 Amoxicillin/ Clavulanate Potassium (Augmentin 500/ 125mg) 1 tab BID PO Last administered on 03/19/18at 20:11; Start 03/19/18 at 21:00 Active Scripts Active Reported Florastor (Saccharomyces Boulardii) 250 Mg Capsule 250 Mg PO DAILY Dairy Digest (Lactase) 9,000 Unit Tablet 9,000 Unit PO TIDAC Nexium Capsule (Esomeprazole Magnesium) 40 Mg Capsule.dr 40 Mg PO BID Namzaric 28 mg-10 mg Capsule (Memantine HCl/Donepezil HCl) 1 Each Cap.spr.24 1 Each PO DAILY Acetaminophen 500 Mg Tablet 1,000 Mg PO TID Rosalia-Lanta Liquid (Mag Hydrox/Al Hydrox/Simeth) 355 Ml Oral.susp 30 Ml PO PRN Q6HRS PRN Simethicone 80 Mg Tab.chew 80 Mg PO PRN Q6HRS PRN Cepacol Sore Throat Lozenge (Benzocaine/Menthol) 1 Each Lozenge 1 Each MM PRN Q2HR PRN Tylenol (Acetaminophen) 325 Mg Tablet 650 Mg PO PRN Q4HRS PRN Norvasc (Amlodipine Besylate) 10 Mg Tablet 10 Mg PO DAILY Metoprolol Succinate ( Xl ) (Metoprolol Succinate) 25 Mg Tab.er.24h 25 Mg PO DAILY Seroquel (Quetiapine Fumarate) 25 Mg Tablet 25 Mg PO DAILY Depakote Sprinkle (Divalproex Sodium) 125 Mg Cap.sprink 250 Mg PO QHS Depakote Sprinkle (Divalproex Sodium) 125 Mg Cap.sprink 125 Mg PO DAILY@1600 Ativan (Lorazepam) 0.5 Mg Tablet 0.5 Mg PO PRN BID PRN I have reviewed the current psychotropics carefully including drug interactions. Risk benefit ratio favors no change other than as noted in my dictated progress note. Diagnosis: Problems: (1) Medical clearance for psychiatric admission (2) Anxiety disorder (3) Dementia, vascular, with delusions (4) Dementia, vascular, with depression (5) Dementia in Alzheimer's disease with delusions (6) Dementia in Alzheimer's disease with depression (7) Impulse control disorder ANSON CORMIER MD Mar 19, 2018 21:04
[2018-03-20 06:02] VITALS: BP 178/78
[2018-03-20 07:07] LABS: BASO # 0.1 x10^3/uL (0.0-0.2); BASO % 1 % (0-3); EOS # 0.3 x10^3/uL (0.0-0.7); EOS % 4 % (0-3); HEMATOCRIT 35.2 % (36.0-47.0); HEMOGLOBIN 11.5 g/dL (12.0-15.5); LYMPH # 2.7 x10^3/uL (1.0-4.8); LYMPH % 31 % (24-48); MEAN CORPUSCULAR HEMOGLOBIN 30 pg (25-35); MEAN CORPUSCULAR HGB CONC 33 g/dL (31-37); MEAN CORPUSCULAR VOLUME 92 fL (79-100); MONO # 0.9 x10^3/uL (0.0-1.1); MONO % 10 % (0-9); NEUT # 4.7 x10^3uL (1.8-7.7); NEUT % 54 % (31-73); PLATELET COUNT 260 x10^3/uL (140-400); RED BLOOD COUNT 3.82 x10^6/uL (3.50-5.40); RED CELL DISTRIBUTION WIDTH 14.1 % (11.5-14.5); WHITE BLOOD COUNT 8.7 x10^3/uL (4.0-11.0)
[2018-03-20 07:21] LABS: ALBUMIN 3.4 g/dL (3.4-5.0); ALBUMIN/GLOBULIN RATIO 0.8 (1.0-1.7); ALK PHOS 136 U/L (46-116); ALT (SGPT) 22 U/L (14-59); ANION GAP 7 (6-14); AST (SGOT) 20 U/L (15-37); BLOOD UREA NITROGEN 33 mg/dL (7-20); BUN/CREATININE RATIO 21 (6-20); CALCIUM 9.4 mg/dL (8.5-10.1); CARBON DIOXIDE 29 mmol/L (21-32); CHLORIDE 108 mmol/L (98-107); CREATININE 1.6 mg/dL (0.6-1.0); GFR 30.6; GLUCOSE 87 mg/dL (70-99); SODIUM 144 mmol/L (136-145); TOTAL BILIRUBIN 0.3 mg/dL (0.2-1.0); TOTAL PROTEIN 7.8 g/dL (6.4-8.2)
[2018-03-20 07:27] LABS: VAL ACID 44 mcg/mL (50-100)
[2018-03-20] MEDS: LACTOBACILLUS RHAMNOSUS GG 1 CAPSULE. PO SCH (07:47)
[2018-03-20] MEDS: ACETAMINOPHEN 500 MG TABLET PO SCH ×3 (07:47→21:53)
[2018-03-20] MEDS: amLODIPine BESYLATE 10 MG TABLET PO SCH (07:51)
[2018-03-20] MEDS: AMOXICILLIN/K CLAV 500/125MG TABLET. PO SCH ×2 (07:53→21:53)
[2018-03-20] MEDS: PANTOPRAZOLE 40 MG TABLET. PO SCH (07:53)
[2018-03-20] MEDS: SERTRALINE 25 MG TABLET. PO SCH (07:53)
[2018-03-20] MEDS: METOPROLOL SUCC 24HR ER 25 MG TAB.ER.24H. PO SCH (07:53)
[2018-03-20] MEDS: LACTASE 3,000 UNIT TABLET PO PRN (07:54)
[2018-03-20] MEDS: MEMANTINE 10 MG TABLET. PO SCH ×2 (07:54→21:53)
[2018-03-20] MEDS: DIVALPROEX 125 MG CAP.SPRINK PO SCH ×3 (07:54→21:54)
[2018-03-20] MEDS: DONEPEZIL HCL 10 MG TABLET PO SCH (07:55)
[2018-03-20] MEDS: QUEtiapine 25 MG TABLET. PO SCH (07:56)
[2018-03-20 16:11] VITALS: BP 121/54
[2018-03-20] MEDS: MIRTAZAPINE 15 MG TABLET PO SCH (21:53)
--- NOTE | 2018-03-20 22:10 | PN ---
DATE: 03/18/2018 This is a late entry for 03/18/2018 covers elements not covered in my initial note. SUBJECTIVE: I met with the patient in the evening. The patient slept 5-3/4 hours previous evening, refused lunch and supper, remains quite confused. REVIEW OF SYSTEMS: Ambulation impaired with walker. No CV, , pulmonary, eye system symptoms on review. MENTAL STATUS EXAM: Oriented to herself. Insight, judgment, recent and remote memory, attention, concentration, fund of knowledge poor, consistent with her diagnosis. She is not very verbally interactive. LABORATORY DATA: Reviewed. IMPRESSION: Unchanged from initial note. PLAN: Continue current psychotropics including Zoloft 25 mg a day, Depakote along with Ativan p.r.n., Namenda, Aricept, Remeron and Seroquel. MAN Sally CORMIER MD DR: OK/onel JOB#: [id number] / [id number]
--- NOTE | 2018-03-20 22:13 | PN ---
DATE: 03/19/2018 This is a late entry for 03/19/2018 covers elements not covered in my initial note. SUBJECTIVE: I met with the patient in the evening. The patient was agitated at times, aggressive, chasing the nursing staff the previous night, slept 3-3/4 hours. On 03/19/2018, she has been up for meals, confused. REVIEW OF SYSTEMS: No CV, , pulmonary, eye, ENT system symptoms on review. Reliability poor. MENTAL STATUS EXAM: Oriented to herself. Insight, judgment, recent and remote memory, attention, concentration, fund of knowledge poor, consistent with her diagnosis mentioned in my initial note. PLAN: Start trazodone 50 mg at bedtime p.r.n., may repeat x 1 for insomnia, increase Remeron from 7.5 to 15 mg at bedtime. Continue rest of her psychotropics, Depakote, Ativan p.r.n., Namenda, Aricept, Seroquel and Zoloft. ANSON CORMIER MD DR: OK/onel JOB#: [id number] / [id number]
--- NOTE | 2018-03-20 22:46 | PDOC ---
Exam Note: Zhang Note: Please also refer to the separate dictated note~for this date of service dictated separately.~Patient seen individually. Discussed the patient with Nursing staff reviewed the chart.~Reviewed interim history and current functioning. Reviewed vital signs,~Labs/ Radiology~and current medications noted below. Continue current treatment with the changes noted in the dictated addendum note Assessment: Vital Signs: Vital Signs Date Time Temp Pulse Resp B/P (MAP) Pulse Ox O2 Delivery O2 Flow Rate FiO2 03/20/18 16:11 97.9 57 20 121/54 (76) 94 Room Air I&O Intake and Output 03/20/18 07:00 Intake Total 680 ml Balance 680 ml Intake Oral 680 ml Labs: Laboratory Tests Test 03/20/18 06:30 White Blood Count 8.7 x10^3/uL (4.0-11.0) Red Blood Count 3.82 x10^6/uL (3.50-5.40) Hemoglobin 11.5 g/dL (12.0-15.5) L Hematocrit 35.2 % (36.0-47.0) L Mean Corpuscular Volume 92 fL (79-100) Mean Corpuscular Hemoglobin 30 pg (25-35) Mean Corpuscular Hemoglobin Concent 33 g/dL (31-37) Red Cell Distribution Width 14.1 % (11.5-14.5) Platelet Count 260 x10^3/uL (140-400) Neutrophils (%) (Auto) 54 % (31-73) Lymphocytes (%) (Auto) 31 % (24-48) Monocytes (%) (Auto) 10 % (0-9) H Eosinophils (%) (Auto) 4 % (0-3) H Basophils (%) (Auto) 1 % (0-3) Neutrophils # (Auto) 4.7 x10^3uL (1.8-7.7) Lymphocytes # (Auto) 2.7 x10^3/uL (1.0-4.8) Monocytes # (Auto) 0.9 x10^3/uL (0.0-1.1) Eosinophils # (Auto) 0.3 x10^3/uL (0.0-0.7) Basophils # (Auto) 0.1 x10^3/uL (0.0-0.2) Sodium Level 144 mmol/L (136-145) Potassium Level 4.0 mmol/L (3.5-5.1) Chloride Level 108 mmol/L (98-107) H Carbon Dioxide Level 29 mmol/L (21-32) Anion Gap 7 (6-14) Blood Urea Nitrogen 33 mg/dL (7-20) H Creatinine 1.6 mg/dL (0.6-1.0) H Estimated GFR (Cockcroft-Gault) 30.6 BUN/Creatinine Ratio 21 (6-20) H Glucose Level 87 mg/dL (70-99) Calcium Level 9.4 mg/dL (8.5-10.1) Total Bilirubin 0.3 mg/dL (0.2-1.0) Aspartate Amino Transferase (AST) 20 U/L (15-37) Alanine Aminotransferase (ALT) 22 U/L (14-59) Alkaline Phosphatase 136 U/L (46-116) H Ammonia < 10 mcmol/L (11-34) L Total Protein 7.8 g/dL (6.4-8.2) Albumin 3.4 g/dL (3.4-5.0) Albumin/Globulin Ratio 0.8 (1.0-1.7) L Valproic Acid Level 44 mcg/mL (50-100) L Valproic Acid Last Dose Date 03/19/2018 Valproic Acid Last Dose Time 2100 Current Medications: Meds: Current Medications Acetaminophen (Tylenol) 650 mg PRN Q6HRS PRN PO PAIN / TEMP; Start 03/14/18 at 22:00; Stop 03/14/18 at 22:25; Status DC Multi-Ingredient Ointment (Analgesic [place]) 1 noy PRN QID PRN TP MUSCLE PAIN; Start 03/14/18 at 22:00 Al Hydroxide/Mg Hydroxide (Mylanta Plus Xs) 15 ml PRN AFTMEALHC PRN PO DYSPEPSIA; Start 03/14/18 at 22:00; Stop 03/14/18 at 22:25; Status DC Magnesium Hydroxide (Milk Of Magnesia) 2,400 mg PRN QHS PRN PO CONSTIPATION; Start 03/14/18 at 22:00 Divalproex Sodium (Depakote Sprinkles) 125 mg DAILY@1600 PO Last administered on 03/16/18at 15:36; Start 03/15/18 at 16:00; Stop 03/16/18 at 17:18; Status DC Divalproex Sodium (Depakote Sprinkles) 250 mg QHS PO Last administered on 21:54; Start 03/14/18 at 23:00 Lorazepam (Ativan) 0.5 mg PRN BID PRN PO ANXIETY / AGITATION Last administered on 03/19/18 02:45; Start 03/14/18 at 22:30 Memantine (Namenda) 10 mg BID PO Last administered on 03/20/18 21:53; Start at 09:00 Quetiapine Fumarate (SEROquel) 25 mg DAILY PO Last administered on 03/20/18 07 :56; Start 03/15/18 at 09:00 Acetaminophen (Tylenol) 650 mg PRN Q4HRS PRN PO PAIN / TEMP; Start 03/14/18 at 22:15 Throat Lozenges (Cepacol Sore Throat Lozenge) 1 pedro PRN Q2HR PRN MM SORE THROAT ; Start 03/14/18 at 22:15 Metoprolol Succinate (Toprol Xl) 25 mg DAILY PO Last administered on 03/20/18 07:53; Start 03/15/18 at 09:00 Simethicone (Gas-X) 80 mg PRN Q6HRS PRN PO GAS / BLOATING; Start 03/14/18 at 22 :15 Acetaminophen (Tylenol) 500 mg TID PO Last administered on 03/20/18 21:53; Start 03/14/18 at 23:00 Amlodipine Besylate (Norvasc) 10 mg DAILY PO Last administered on 03/20/18 07: 51; Start 03/15/18 at 09:00 Lactase (Lactaid) 9,000 unit TIDAC PRN PO GI SYMPTOMS Last administered on 03/19 18:35; Start 03/14/18 at 22:15 Al Hydroxide/Mg Hydroxide (Mylanta Plus Xs) 30 ml PRN Q6HRS PRN PO DYSPEPSIA; Start 03/14/18 at 22:15 Pantoprazole Sodium (Protonix) 40 mg DAILYAC PO Last administered on 03/20/18 07:53; Start 03/15/18 at 07:30 Lactobacillus Rhamnosus (Culturelle) 1 cap DAILY PO Last administered on 07:47; Start 03/15/18 at 09:00 Donepezil HCl (Aricept) 10 mg DAILY PO Last administered on 03/20/18at 07:55; Start 03/15/18 at 09:00 Influenza Virus Vaccine (Afluria Trivalent [id number] Syringe) 0.5 ml ONCE ONCE VAX IM Last administered on 03/15/18at 15:31; Start 03/15/18 at 14:15; Stop at 14:21; Status DC Divalproex Sodium (Depakote Sprinkles) 250 mg DAILY@1600 PO Last administered on 03/20/18at 15:00; Start 03/17/18 at 16:00 Mirtazapine (Remeron) 7.5 mg QHS PO Last administered on 03/18/18at 20:13; Start 03/16/18 at 21:00; Stop 03/19/18 at 17:04; Status DC Divalproex Sodium (Depakote Sprinkles) 125 mg DAILY PO Last administered on at 07:54; Start 03/17/18 at 09:00 Sertraline HCl (Zoloft) 25 mg DAILY PO Last administered on 03/20/18 07:53; Start 03/18/18 at 09:00 Mirtazapine (Remeron) 15 mg QHS PO Last administered on 03/20/18at 21:53; Start 03/19/18 at 21:00 Trazodone HCl (Desyrel) 50 mg PRN QHS PRN PO INSOMNIA, MAY REPEAT X1; Start at 17:15 Amoxicillin/ Clavulanate Potassium (Augmentin 500/ 125mg) 1 tab BID PO Last administered on 03/20/18at 21:53; Start 03/19/18 at 21:00 Active Scripts Active Reported Florastor (Saccharomyces Boulardii) 250 Mg Capsule 250 Mg PO DAILY Dairy Digest (Lactase) 9,000 Unit Tablet 9,000 Unit PO TIDAC Nexium Capsule (Esomeprazole Magnesium) 40 Mg Capsule.dr 40 Mg PO BID Namzaric 28 mg-10 mg Capsule (Memantine HCl/Donepezil HCl) 1 Each Cap.spr.24 1 Each PO DAILY Acetaminophen 500 Mg Tablet 1,000 Mg PO TID Rosalia-Lanta Liquid (Mag Hydrox/Al Hydrox/Simeth) 355 Ml Oral.susp 30 Ml PO PRN Q6HRS PRN Simethicone 80 Mg Tab.chew 80 Mg PO PRN Q6HRS PRN Cepacol Sore Throat Lozenge (Benzocaine/Menthol) 1 Each Lozenge 1 Each MM PRN Q2HR PRN Tylenol (Acetaminophen) 325 Mg Tablet 650 Mg PO PRN Q4HRS PRN Norvasc (Amlodipine Besylate) 10 Mg Tablet 10 Mg PO DAILY Metoprolol Succinate ( Xl ) (Metoprolol Succinate) 25 Mg Tab.er.24h 25 Mg PO DAILY Seroquel (Quetiapine Fumarate) 25 Mg Tablet 25 Mg PO DAILY Depakote Sprinkle (Divalproex Sodium) 125 Mg Cap.sprink 250 Mg PO QHS Depakote Sprinkle (Divalproex Sodium) 125 Mg Cap.sprink 125 Mg PO DAILY@1600 Ativan (Lorazepam) 0.5 Mg Tablet 0.5 Mg PO PRN BID PRN I have reviewed the current psychotropics carefully including drug interactions. Risk benefit ratio favors no change other than as noted in my dictated progress note. Diagnosis: Problems: (1) Medical clearance for psychiatric admission (2) Anxiety disorder (3) Dementia, vascular, with delusions (4) Dementia, vascular, with depression (5) Dementia in Alzheimer's disease with delusions (6) Dementia in Alzheimer's disease with depression (7) Impulse control disorder ANSON CORMIER MD Mar 20, 2018 22:46
[2018-03-21 05:45] VITALS: BP 165/84
[2018-03-21] MEDS: PANTOPRAZOLE 40 MG TABLET. PO SCH (10:06)
[2018-03-21] MEDS: DONEPEZIL HCL 10 MG TABLET PO SCH (10:06)
[2018-03-21] MEDS: LACTOBACILLUS RHAMNOSUS GG 1 CAPSULE. PO SCH (10:06)
[2018-03-21] MEDS: METOPROLOL SUCC 24HR ER 25 MG TAB.ER.24H. PO SCH (10:06)
[2018-03-21] MEDS: amLODIPine BESYLATE 10 MG TABLET PO SCH (10:07)
[2018-03-21] MEDS: MEMANTINE 10 MG TABLET. PO SCH ×2 (10:07→20:00)
[2018-03-21] MEDS: AMOXICILLIN/K CLAV 500/125MG TABLET. PO SCH ×2 (10:07→20:02)
[2018-03-21] MEDS: SERTRALINE 25 MG TABLET. PO SCH (10:07)
[2018-03-21] MEDS: ACETAMINOPHEN 500 MG TABLET PO SCH ×3 (10:07→20:02)
[2018-03-21] MEDS: QUEtiapine 25 MG TABLET. PO SCH (10:07)
[2018-03-21] MEDS: DIVALPROEX 125 MG CAP.SPRINK PO SCH ×3 (10:08→20:01)
[2018-03-21 15:45] VITALS: BP 135/82
[2018-03-21] MEDS: MIRTAZAPINE 15 MG TABLET PO SCH (20:00)
--- NOTE | 2018-03-21 20:58 | PDOC ---
Exam Note: Zhang Note: Please also refer to the separate dictated note~for this date of service dictated separately.~Patient seen individually. Discussed the patient with Nursing staff reviewed the chart.~Reviewed interim history and current functioning. Reviewed vital signs,~Labs/ Radiology~and current medications noted below. Continue current treatment with the changes noted in the dictated addendum note Assessment: Vital Signs: Vital Signs Date Time Temp Pulse Resp B/P (MAP) Pulse Ox O2 Delivery O2 Flow Rate FiO2 03/21/18 15:45 97.9 68 18 135/82 (99) 93 Room Air I&O Intake and Output 03/21/18 07:00 Intake Total 440 ml Balance 440 ml Intake Oral 440 ml Current Medications: Meds: Current Medications Acetaminophen (Tylenol) 650 mg PRN Q6HRS PRN PO PAIN / TEMP; Start 03/14/18 at 22:00; Stop 03/14/18 at 22:25; Status DC Multi-Ingredient Ointment (Analgesic [place]) 1 noy PRN QID PRN TP MUSCLE PAIN; Start 03/14/18 at 22:00 Al Hydroxide/Mg Hydroxide (Mylanta Plus Xs) 15 ml PRN AFTMEALHC PRN PO DYSPEPSIA; Start 03/14/18 at 22:00; Stop 03/14/18 at 22:25; Status DC Magnesium Hydroxide (Milk Of Magnesia) 2,400 mg PRN QHS PRN PO CONSTIPATION; Start 03/14/18 at 22:00 Divalproex Sodium (Depakote Sprinkles) 125 mg DAILY@1600 PO Last administered on 03/16/18at 15:36; Start 03/15/18 at 16:00; Stop 03/16/18 at 17:18; Status DC Divalproex Sodium (Depakote Sprinkles) 250 mg QHS PO Last administered on at 20:01; Start 03/14/18 at 23:00 Lorazepam (Ativan) 0.5 mg PRN BID PRN PO ANXIETY / AGITATION Last administered on 03/19/18at 02:45; Start 03/14/18 at 22:30 Memantine (Namenda) 10 mg BID PO Last administered on 03/21/18at 20:00; Start at 09:00 Quetiapine Fumarate (SEROquel) 25 mg DAILY PO Last administered on 03/21/18 10 :07; Start 03/15/18 at 09:00; Stop 03/21/18 at 19:16; Status DC Acetaminophen (Tylenol) 650 mg PRN Q4HRS PRN PO PAIN / TEMP; Start 03/14/18 at 22:15 Throat Lozenges (Cepacol Sore Throat Lozenge) 1 pedro PRN Q2HR PRN MM SORE THROAT ; Start 03/14/18 at 22:15 Metoprolol Succinate (Toprol Xl) 25 mg DAILY PO Last administered on 03/21/18 10:06; Start 03/15/18 at 09:00 Simethicone (Gas-X) 80 mg PRN Q6HRS PRN PO GAS / BLOATING; Start 03/14/18 at 22 :15 Acetaminophen (Tylenol) 500 mg TID PO Last administered on 03/21/18 20:02; Start 03/14/18 at 23:00 Amlodipine Besylate (Norvasc) 10 mg DAILY PO Last administered on 03/21/18 10: 07; Start 03/15/18 at 09:00 Lactase (Lactaid) 9,000 unit TIDAC PRN PO GI SYMPTOMS Last administered on 03/19at 18:35; Start 03/14/18 at 22:15 Al Hydroxide/Mg Hydroxide (Mylanta Plus Xs) 30 ml PRN Q6HRS PRN PO DYSPEPSIA; Start 03/14/18 at 22:15 Pantoprazole Sodium (Protonix) 40 mg DAILYAC PO Last administered on 03/21/18 10:06; Start 03/15/18 at 07:30 Lactobacillus Rhamnosus (Culturelle) 1 cap DAILY PO Last administered on 10:06; Start 03/15/18 at 09:00 Donepezil HCl (Aricept) 10 mg DAILY PO Last administered on 03/21/18 10:06; Start 03/15/18 at 09:00 Influenza Virus Vaccine (Afluria Trivalent [id number] Syringe) 0.5 ml ONCE ONCE VAX IM Last administered on 03/15/18at 15:31; Start 03/15/18 at 14:15; Stop at 14:21; Status DC Divalproex Sodium (Depakote Sprinkles) 250 mg DAILY@1600 PO Last administered on 03/21/18at 17:00; Start 03/17/18 at 16:00 Mirtazapine (Remeron) 7.5 mg QHS PO Last administered on 03/18/18at 20:13; Start 03/16/18 at 21:00; Stop 03/19/18 at 17:04; Status DC Divalproex Sodium (Depakote Sprinkles) 125 mg DAILY PO Last administered on at 10:08; Start 03/17/18 at 09:00 Sertraline HCl (Zoloft) 25 mg DAILY PO Last administered on 03/21/18at 10:07; Start 03/18/18 at 09:00 Mirtazapine (Remeron) 15 mg QHS PO Last administered on 03/21/18at 20:00; Start 03/19/18 at 21:00 Trazodone HCl (Desyrel) 50 mg PRN QHS PRN PO INSOMNIA, MAY REPEAT X1; Start at 17:15 Amoxicillin/ Clavulanate Potassium (Augmentin 500/ 125mg) 1 tab BID PO Last administered on 03/21/18at 20:02; Start 03/19/18 at 21:00 Quetiapine Fumarate (SEROquel) 50 mg DAILY PO ; Start 03/22/18 at 09:00 Active Scripts Active Reported Florastor (Saccharomyces Boulardii) 250 Mg Capsule 250 Mg PO DAILY Dairy Digest (Lactase) 9,000 Unit Tablet 9,000 Unit PO TIDAC Nexium Capsule (Esomeprazole Magnesium) 40 Mg Capsule.dr 40 Mg PO BID Namzaric 28 mg-10 mg Capsule (Memantine HCl/Donepezil HCl) 1 Each Cap.spr.24 1 Each PO DAILY Acetaminophen 500 Mg Tablet 1,000 Mg PO TID Rosalia-Lanta Liquid (Mag Hydrox/Al Hydrox/Simeth) 355 Ml Oral.susp 30 Ml PO PRN Q6HRS PRN Simethicone 80 Mg Tab.chew 80 Mg PO PRN Q6HRS PRN Cepacol Sore Throat Lozenge (Benzocaine/Menthol) 1 Each Lozenge 1 Each MM PRN Q2HR PRN Tylenol (Acetaminophen) 325 Mg Tablet 650 Mg PO PRN Q4HRS PRN Norvasc (Amlodipine Besylate) 10 Mg Tablet 10 Mg PO DAILY Metoprolol Succinate ( Xl ) (Metoprolol Succinate) 25 Mg Tab.er.24h 25 Mg PO DAILY Seroquel (Quetiapine Fumarate) 25 Mg Tablet 25 Mg PO DAILY Depakote Sprinkle (Divalproex Sodium) 125 Mg Cap.sprink 250 Mg PO QHS Depakote Sprinkle (Divalproex Sodium) 125 Mg Cap.sprink 125 Mg PO DAILY@1600 Ativan (Lorazepam) 0.5 Mg Tablet 0.5 Mg PO PRN BID PRN I have reviewed the current psychotropics carefully including drug interactions. Risk benefit ratio favors no change other than as noted in my dictated progress note. Diagnosis: Problems: (1) Medical clearance for psychiatric admission (2) Anxiety disorder (3) Dementia, vascular, with delusions (4) Dementia, vascular, with depression (5) Dementia in Alzheimer's disease with delusions (6) Dementia in Alzheimer's disease with depression (7) Impulse control disorder ANSON CORMIER MD Mar 21, 2018 20:58
--- NOTE | 2018-03-21 22:55 | PN ---
DATE: 03/20/2018 This late entry for 03/20/2018 covers elements not covered in my initial note. SUBJECTIVE: I met with the patient in the evening. The patient slept 7-3/4 hours previous night. She is confused, did well during the day. BUN 21. Valproic acid level 44. She gets a little anxious, restless at times. REVIEW OF SYSTEMS: No CV, , pulmonary, eye, ENT system symptoms on review. Reliability poor. She ambulates with a walker. MENTAL STATUS EXAM: Oriented to herself. Insight, judgment, recent and remote memory, attention, concentration, fund of knowledge poor, consistent with her diagnosis mentioned in my initial note. PLAN: No change from initial note. Continue Ativan p.r.n., Depakote at current dosage, Seroquel, Namenda, Aricept, Remeron, Zoloft and trazodone. Valproic acid level slightly subtherapeutic, but we will adjust this if behaviorally it is justified. ANSON CORMIER MD DR: OK/onel JOB#: [id number] / [id number]
[2018-03-22 05:37] VITALS: BP 173/83
[2018-03-22] MEDS: AMOXICILLIN/K CLAV 500/125MG TABLET. PO SCH ×2 (08:03→20:20)
[2018-03-22] MEDS: METOPROLOL SUCC 24HR ER 25 MG TAB.ER.24H. PO SCH (08:03)
[2018-03-22] MEDS: amLODIPine BESYLATE 10 MG TABLET PO SCH (08:04)
[2018-03-22] MEDS: MEMANTINE 10 MG TABLET. PO SCH ×2 (08:04→20:20)
[2018-03-22] MEDS: DONEPEZIL HCL 10 MG TABLET PO SCH (08:04)
[2018-03-22] MEDS: DIVALPROEX 125 MG CAP.SPRINK PO SCH ×3 (08:04→20:21)
[2018-03-22] MEDS: LACTOBACILLUS RHAMNOSUS GG 1 CAPSULE. PO SCH (08:05)
[2018-03-22] MEDS: ACETAMINOPHEN 500 MG TABLET PO SCH ×3 (08:05→20:21)
[2018-03-22] MEDS: SERTRALINE 25 MG TABLET. PO SCH (08:05)
[2018-03-22] MEDS: PANTOPRAZOLE 40 MG TABLET. PO SCH (08:05)
[2018-03-22] MEDS: QUEtiapine 50 MG TABLET. PO SCH (08:06)
[2018-03-22 16:23] VITALS: BP 149/70
[2018-03-22] MEDS: MIRTAZAPINE 15 MG TABLET PO SCH (20:21)
--- NOTE | 2018-03-22 20:47 | PDOC ---
Exam Note: Zhang Note: Please also refer to the separate dictated note~for this date of service dictated separately.~Patient seen individually. Discussed the patient with Nursing staff reviewed the chart.~Reviewed interim history and current functioning. Reviewed vital signs,~Labs/ Radiology~and current medications noted below. Continue current treatment with the changes noted in the dictated addendum note Assessment: Vital Signs: Vital Signs Date Time Temp Pulse Resp B/P (MAP) Pulse Ox O2 Delivery O2 Flow Rate FiO2 03/22/18 16:23 98.3 57 16 149/70 (96) 95 03/21/18 15:45 Room Air I&O Intake and Output 03/22/18 07:00 Intake Total 680 ml Balance 680 ml Intake Oral 680 ml Current Medications: Meds: Current Medications Acetaminophen (Tylenol) 650 mg PRN Q6HRS PRN PO PAIN / TEMP; Start 03/14/18 at 22:00; Stop 03/14/18 at 22:25; Status DC Multi-Ingredient Ointment (Analgesic [place]) 1 noy PRN QID PRN TP MUSCLE PAIN; Start 03/14/18 at 22:00 Al Hydroxide/Mg Hydroxide (Mylanta Plus Xs) 15 ml PRN AFTMEALHC PRN PO DYSPEPSIA; Start 03/14/18 at 22:00; Stop 03/14/18 at 22:25; Status DC Magnesium Hydroxide (Milk Of Magnesia) 2,400 mg PRN QHS PRN PO CONSTIPATION; Start 03/14/18 at 22:00 Divalproex Sodium (Depakote Sprinkles) 125 mg DAILY@1600 PO Last administered on 03/16/18at 15:36; Start 03/15/18 at 16:00; Stop 03/16/18 at 17:18; Status DC Divalproex Sodium (Depakote Sprinkles) 250 mg QHS PO Last administered on at 20:21; Start 03/14/18 at 23:00 Lorazepam (Ativan) 0.5 mg PRN BID PRN PO ANXIETY / AGITATION Last administered on 03/19/18at 02:45; Start 03/14/18 at 22:30 Memantine (Namenda) 10 mg BID PO Last administered on 03/22/18at 20:20; Start at 09:00 Quetiapine Fumarate (SEROquel) 25 mg DAILY PO Last administered on 03/21/18at 10 :07; Start 03/15/18 at 09:00; Stop 03/21/18 at 19:16; Status DC Acetaminophen (Tylenol) 650 mg PRN Q4HRS PRN PO PAIN / TEMP; Start 03/14/18 at 22:15 Throat Lozenges (Cepacol Sore Throat Lozenge) 1 pedro PRN Q2HR PRN MM SORE THROAT ; Start 03/14/18 at 22:15 Metoprolol Succinate (Toprol Xl) 25 mg DAILY PO Last administered on 03/22/18 08:03; Start 03/15/18 at 09:00 Simethicone (Gas-X) 80 mg PRN Q6HRS PRN PO GAS / BLOATING; Start 03/14/18 at 22 :15 Acetaminophen (Tylenol) 500 mg TID PO Last administered on 03/22/18at 20:21; Start 03/14/18 at 23:00 Amlodipine Besylate (Norvasc) 10 mg DAILY PO Last administered on 03/22/18at 08: 04; Start 03/15/18 at 09:00 Lactase (Lactaid) 9,000 unit TIDAC PRN PO GI SYMPTOMS Last administered on 03/19at 18:35; Start 03/14/18 at 22:15 Al Hydroxide/Mg Hydroxide (Mylanta Plus Xs) 30 ml PRN Q6HRS PRN PO DYSPEPSIA; Start 03/14/18 at 22:15 Pantoprazole Sodium (Protonix) 40 mg DAILYAC PO Last administered on 03/22/18at 08:05; Start 03/15/18 at 07:30 Lactobacillus Rhamnosus (Culturelle) 1 cap DAILY PO Last administered on at 08:05; Start 03/15/18 at 09:00 Donepezil HCl (Aricept) 10 mg DAILY PO Last administered on 03/22/18at 08:04; Start 03/15/18 at 09:00 Influenza Virus Vaccine (Afluria Trivalent [id number] Syringe) 0.5 ml ONCE ONCE VAX IM Last administered on 03/15/18at 15:31; Start 03/15/18 at 14:15; Stop at 14:21; Status DC Divalproex Sodium (Depakote Sprinkles) 250 mg DAILY@1600 PO Last administered on 03/22/18at 17:03; Start 03/17/18 at 16:00 Mirtazapine (Remeron) 7.5 mg QHS PO Last administered on 03/18/18at 20:13; Start 03/16/18 at 21:00; Stop 03/19/18 at 17:04; Status DC Divalproex Sodium (Depakote Sprinkles) 125 mg DAILY PO Last administered on at 08:04; Start 03/17/18 at 09:00 Sertraline HCl (Zoloft) 25 mg DAILY PO Last administered on 03/22/18at 08:05; Start 03/18/18 at 09:00 Mirtazapine (Remeron) 15 mg QHS PO Last administered on 03/22/18at 20:21; Start 03/19/18 at 21:00 Trazodone HCl (Desyrel) 50 mg PRN QHS PRN PO INSOMNIA, MAY REPEAT X1; Start at 17:15 Amoxicillin/ Clavulanate Potassium (Augmentin 500/ 125mg) 1 tab BID PO Last administered on 03/22/18at 20:20; Start 03/19/18 at 21:00 Quetiapine Fumarate (SEROquel) 50 mg DAILY PO Last administered on 03/22/18at 08 :06; Start 03/22/18 at 09:00 Active Scripts Active Reported Florastor (Saccharomyces Boulardii) 250 Mg Capsule 250 Mg PO DAILY Dairy Digest (Lactase) 9,000 Unit Tablet 9,000 Unit PO TIDAC Nexium Capsule (Esomeprazole Magnesium) 40 Mg Capsule.dr 40 Mg PO BID Namzaric 28 mg-10 mg Capsule (Memantine HCl/Donepezil HCl) 1 Each Cap.spr.24 1 Each PO DAILY Acetaminophen 500 Mg Tablet 1,000 Mg PO TID Rosalia-Lanta Liquid (Mag Hydrox/Al Hydrox/Simeth) 355 Ml Oral.susp 30 Ml PO PRN Q6HRS PRN Simethicone 80 Mg Tab.chew 80 Mg PO PRN Q6HRS PRN Cepacol Sore Throat Lozenge (Benzocaine/Menthol) 1 Each Lozenge 1 Each MM PRN Q2HR PRN Tylenol (Acetaminophen) 325 Mg Tablet 650 Mg PO PRN Q4HRS PRN Norvasc (Amlodipine Besylate) 10 Mg Tablet 10 Mg PO DAILY Metoprolol Succinate ( Xl ) (Metoprolol Succinate) 25 Mg Tab.er.24h 25 Mg PO DAILY Seroquel (Quetiapine Fumarate) 25 Mg Tablet 25 Mg PO DAILY Depakote Sprinkle (Divalproex Sodium) 125 Mg Cap.sprink 250 Mg PO QHS Depakote Sprinkle (Divalproex Sodium) 125 Mg Cap.sprink 125 Mg PO DAILY@1600 Ativan (Lorazepam) 0.5 Mg Tablet 0.5 Mg PO PRN BID PRN I have reviewed the current psychotropics carefully including drug interactions. Risk benefit ratio favors no change other than as noted in my dictated progress note. Diagnosis: Problems: (1) Medical clearance for psychiatric admission (2) Anxiety disorder (3) Dementia, vascular, with delusions (4) Dementia, vascular, with depression (5) Dementia in Alzheimer's disease with delusions (6) Dementia in Alzheimer's disease with depression (7) Impulse control disorder ANSON CORMIER MD Mar 22, 2018 20:47
--- NOTE | 2018-03-22 23:23 | PN ---
DATE: 03/21/2018 This is a late entry 03/21/2018 covers elements not covered in my initial note. SUBJECTIVE: I met with the patient in the evening. The patient slept 5-1/4 hours previous night. Compliant with medications, confused, sexually inappropriate with males at times, takes her medications crushed. REVIEW OF SYSTEMS: No CV, , pulmonary, eye, ENT system symptoms on review. Gait unsteady with walker. MENTAL STATUS EXAM: Oriented to herself. Insight, judgment, recent and remote memory, attention, concentration, fund of knowledge poor, consistent with her diagnosis mentioned in my initial note. PLAN: Valproic acid level was 44, subtherapeutic on the , but clinically adequate. Increase Zoloft from 25 to 50 mg a day. Continue rest per initial note. MAN Sally CORMIER MD DR: OK/onel JOB#: [id number] / [id number]
[2018-03-23 05:23] VITALS: BP 178/84
[2018-03-23] MEDS: DONEPEZIL HCL 10 MG TABLET PO SCH (08:04)
[2018-03-23] MEDS: MEMANTINE 10 MG TABLET. PO SCH ×2 (08:04→20:23)
[2018-03-23] MEDS: DIVALPROEX 125 MG CAP.SPRINK PO SCH ×3 (08:04→20:23)
[2018-03-23] MEDS: SERTRALINE 25 MG TABLET. PO SCH (08:05)
[2018-03-23] MEDS: PANTOPRAZOLE 40 MG TABLET. PO SCH (08:05)
[2018-03-23] MEDS: QUEtiapine 50 MG TABLET. PO SCH (08:05)
[2018-03-23] MEDS: AMOXICILLIN/K CLAV 500/125MG TABLET. PO SCH ×2 (08:05→20:23)
[2018-03-23] MEDS: LACTOBACILLUS RHAMNOSUS GG 1 CAPSULE. PO SCH (08:05)
[2018-03-23] MEDS: ACETAMINOPHEN 500 MG TABLET PO SCH ×3 (08:05→20:22)
[2018-03-23] MEDS: amLODIPine BESYLATE 10 MG TABLET PO SCH ×2 (08:06→20:25)
[2018-03-23] MEDS: METOPROLOL SUCC 24HR ER 25 MG TAB.ER.24H. PO SCH (08:06)
[2018-03-23 15:54] VITALS: BP 103/70
[2018-03-23] MEDS: MIRTAZAPINE 15 MG TABLET PO SCH (20:23)
--- NOTE | 2018-03-23 20:28 | PDOC ---
Exam Note: Zhang Note: Please also refer to the separate dictated note~for this date of service dictated separately.~Patient seen individually. Discussed the patient with Nursing staff reviewed the chart.~Reviewed interim history and current functioning. Reviewed vital signs,~Labs/ Radiology~and current medications noted below. Continue current treatment with the changes noted in the dictated addendum note Assessment: Vital Signs: Vital Signs Date Time Temp Pulse Resp B/P (MAP) Pulse Ox O2 Delivery O2 Flow Rate FiO2 03/23/18 20:25 71 103/70 03/23/18 15:54 97.6 16 96 Room Air I&O Intake and Output 03/23/18 07:00 Intake Total 860 ml Balance 860 ml Intake Oral 860 ml Current Medications: Meds: Current Medications Acetaminophen (Tylenol) 650 mg PRN Q6HRS PRN PO PAIN / TEMP; Start 03/14/18 at 22:00; Stop 03/14/18 at 22:25; Status DC Multi-Ingredient Ointment (Analgesic [place]) 1 noy PRN QID PRN TP MUSCLE PAIN; Start 03/14/18 at 22:00 Al Hydroxide/Mg Hydroxide (Mylanta Plus Xs) 15 ml PRN AFTMEALHC PRN PO DYSPEPSIA; Start 03/14/18 at 22:00; Stop 03/14/18 at 22:25; Status DC Magnesium Hydroxide (Milk Of Magnesia) 2,400 mg PRN QHS PRN PO CONSTIPATION; Start 03/14/18 at 22:00 Divalproex Sodium (Depakote Sprinkles) 125 mg DAILY@1600 PO Last administered on 03/16/18at 15:36; Start 03/15/18 at 16:00; Stop 03/16/18 at 17:18; Status DC Divalproex Sodium (Depakote Sprinkles) 250 mg QHS PO Last administered on at 20:23; Start 03/14/18 at 23:00 Lorazepam (Ativan) 0.5 mg PRN BID PRN PO ANXIETY / AGITATION Last administered on 03/19/18at 02:45; Start 03/14/18 at 22:30 Memantine (Namenda) 10 mg BID PO Last administered on 03/23/18at 20:23; Start at 09:00 Quetiapine Fumarate (SEROquel) 25 mg DAILY PO Last administered on 03/21/18at 10 :07; Start 03/15/18 at 09:00; Stop 03/21/18 at 19:16; Status DC Acetaminophen (Tylenol) 650 mg PRN Q4HRS PRN PO PAIN / TEMP; Start 03/14/18 at 22:15 Throat Lozenges (Cepacol Sore Throat Lozenge) 1 pedro PRN Q2HR PRN MM SORE THROAT ; Start 03/14/18 at 22:15 Metoprolol Succinate (Toprol Xl) 25 mg DAILY PO Last administered on 03/23/18at 08:06; Start 03/15/18 at 09:00 Simethicone (Gas-X) 80 mg PRN Q6HRS PRN PO GAS / BLOATING; Start 03/14/18 at 22 :15 Acetaminophen (Tylenol) 500 mg TID PO Last administered on 03/23/18at 20:22; Start 03/14/18 at 23:00 Amlodipine Besylate (Norvasc) 10 mg DAILY PO Last administered on 03/23/18at 08: 06; Start 03/15/18 at 09:00; Stop 03/23/18 at 16:51; Status DC Lactase (Lactaid) 9,000 unit TIDAC PRN PO GI SYMPTOMS Last administered on 03/19at 18:35; Start 03/14/18 at 22:15 Al Hydroxide/Mg Hydroxide (Mylanta Plus Xs) 30 ml PRN Q6HRS PRN PO DYSPEPSIA; Start 03/14/18 at 22:15 Pantoprazole Sodium (Protonix) 40 mg DAILYAC PO Last administered on 03/23/18at 08:05; Start 03/15/18 at 07:30 Lactobacillus Rhamnosus (Culturelle) 1 cap DAILY PO Last administered on at 08:05; Start 03/15/18 at 09:00 Donepezil HCl (Aricept) 10 mg DAILY PO Last administered on 03/23/18at 08:04; Start 03/15/18 at 09:00 Influenza Virus Vaccine (Afluria Trivalent [id number] Syringe) 0.5 ml ONCE ONCE VAX IM Last administered on 03/15/18at 15:31; Start 03/15/18 at 14:15; Stop at 14:21; Status DC Divalproex Sodium (Depakote Sprinkles) 250 mg DAILY@1600 PO Last administered on 03/23/18at 17:55; Start 03/17/18 at 16:00 Mirtazapine (Remeron) 7.5 mg QHS PO Last administered on 03/18/18at 20:13; Start 03/16/18 at 21:00; Stop 03/19/18 at 17:04; Status DC Divalproex Sodium (Depakote Sprinkles) 125 mg DAILY PO Last administered on at 08:04; Start 03/17/18 at 09:00 Sertraline HCl (Zoloft) 25 mg DAILY PO Last administered on 03/23/18at 08:05; Start 03/18/18 at 09:00; Stop 03/23/18 at 11:51; Status DC Mirtazapine (Remeron) 15 mg QHS PO Last administered on 03/23/18at 20:23; Start 03/19/18 at 21:00 Trazodone HCl (Desyrel) 50 mg PRN QHS PRN PO INSOMNIA, MAY REPEAT X1; Start at 17:15 Amoxicillin/ Clavulanate Potassium (Augmentin 500/ 125mg) 1 tab BID PO Last administered on 03/23/18at 20:23; Start 03/19/18 at 21:00 Quetiapine Fumarate (SEROquel) 50 mg DAILY PO Last administered on 03/23/18at 08 :05; Start 03/22/18 at 09:00 Sertraline HCl (Zoloft) 50 mg DAILY PO ; Start 03/24/18 at 09:00 Amlodipine Besylate (Norvasc) 10 mg QHS PO Last administered on 03/23/18at 20:25 ; Start 03/23/18 at 21:00 Active Scripts Active Reported Florastor (Saccharomyces Boulardii) 250 Mg Capsule 250 Mg PO DAILY Dairy Digest (Lactase) 9,000 Unit Tablet 9,000 Unit PO TIDAC Nexium Capsule (Esomeprazole Magnesium) 40 Mg Capsule.dr 40 Mg PO BID Namzaric 28 mg-10 mg Capsule (Memantine HCl/Donepezil HCl) 1 Each Cap.spr.24 1 Each PO DAILY Acetaminophen 500 Mg Tablet 1,000 Mg PO TID Rosalia-Lanta Liquid (Mag Hydrox/Al Hydrox/Simeth) 355 Ml Oral.susp 30 Ml PO PRN Q6HRS PRN Simethicone 80 Mg Tab.chew 80 Mg PO PRN Q6HRS PRN Cepacol Sore Throat Lozenge (Benzocaine/Menthol) 1 Each Lozenge 1 Each MM PRN Q2HR PRN Tylenol (Acetaminophen) 325 Mg Tablet 650 Mg PO PRN Q4HRS PRN Norvasc (Amlodipine Besylate) 10 Mg Tablet 10 Mg PO DAILY Metoprolol Succinate ( Xl ) (Metoprolol Succinate) 25 Mg Tab.er.24h 25 Mg PO DAILY Seroquel (Quetiapine Fumarate) 25 Mg Tablet 25 Mg PO DAILY Depakote Sprinkle (Divalproex Sodium) 125 Mg Cap.sprink 250 Mg PO QHS Depakote Sprinkle (Divalproex Sodium) 125 Mg Cap.sprink 125 Mg PO DAILY@1600 Ativan (Lorazepam) 0.5 Mg Tablet 0.5 Mg PO PRN BID PRN I have reviewed the current psychotropics carefully including drug interactions. Risk benefit ratio favors no change other than as noted in my dictated progress note. Diagnosis: Problems: (1) Medical clearance for psychiatric admission (2) Anxiety disorder (3) Dementia, vascular, with delusions (4) Dementia, vascular, with depression (5) Dementia in Alzheimer's disease with delusions (6) Dementia in Alzheimer's disease with depression (7) Impulse control disorder ANSON CORMIER MD Mar 23, 2018 20:28
[2018-03-24 05:51] VITALS: BP 158/84
[2018-03-24] MEDS: DIVALPROEX 125 MG CAP.SPRINK PO SCH ×4 (07:59→20:06)
[2018-03-24] MEDS: ACETAMINOPHEN 500 MG TABLET PO SCH ×4 (07:59→20:08)
[2018-03-24] MEDS: LACTOBACILLUS RHAMNOSUS GG 1 CAPSULE. PO SCH (07:59)
[2018-03-24] MEDS: MEMANTINE 10 MG TABLET. PO SCH ×2 (07:59→20:07)
[2018-03-24] MEDS: AMOXICILLIN/K CLAV 500/125MG TABLET. PO SCH ×2 (07:59→20:06)
[2018-03-24] MEDS: DONEPEZIL HCL 10 MG TABLET PO SCH (07:59)
[2018-03-24] MEDS: PANTOPRAZOLE 40 MG TABLET. PO SCH (08:00)
[2018-03-24] MEDS: METOPROLOL SUCC 24HR ER 25 MG TAB.ER.24H. PO SCH (08:00)
[2018-03-24] MEDS: QUEtiapine 50 MG TABLET. PO SCH (08:01)
[2018-03-24] MEDS: SERTRALINE 50 MG TABLET. PO SCH (08:03)
[2018-03-24] MEDS: MAGNESIUM HYDROXIDE 2,400 MG/30 ML ORAL.SUSP. PO PRN (14:52)
[2018-03-24 16:04] VITALS: BP 151/71
[2018-03-24] MEDS: MIRTAZAPINE 15 MG TABLET PO SCH (20:06)
[2018-03-24] MEDS: amLODIPine BESYLATE 10 MG TABLET PO SCH (20:07)
--- NOTE | 2018-03-24 20:47 | PDOC ---
Exam Note: Zhang Note: Please also refer to the separate dictated note~for this date of service dictated separately.~Patient seen individually. Discussed the patient with Nursing staff reviewed the chart.~Reviewed interim history and current functioning. Reviewed vital signs,~Labs/ Radiology~and current medications noted below. Continue current treatment with the changes noted in the dictated addendum note Assessment: Vital Signs: Vital Signs Date Time Temp Pulse Resp B/P (MAP) Pulse Ox O2 Delivery O2 Flow Rate FiO2 03/24/18 20:07 54 151/71 03/24/18 16:04 97.1 17 93 Room Air I&O Intake and Output 03/24/18 07:00 Intake Total 480 ml Balance 480 ml Intake Oral 480 ml Current Medications: Meds: Current Medications Acetaminophen (Tylenol) 650 mg PRN Q6HRS PRN PO PAIN / TEMP; Start 03/14/18 at 22:00; Stop 03/14/18 at 22:25; Status DC Multi-Ingredient Ointment (Analgesic [place]) 1 noy PRN QID PRN TP MUSCLE PAIN; Start 03/14/18 at 22:00 Al Hydroxide/Mg Hydroxide (Mylanta Plus Xs) 15 ml PRN AFTMEALHC PRN PO DYSPEPSIA; Start 03/14/18 at 22:00; Stop 03/14/18 at 22:25; Status DC Magnesium Hydroxide (Milk Of Magnesia) 2,400 mg PRN QHS PRN PO CONSTIPATION; Start 03/14/18 at 22:00 Divalproex Sodium (Depakote Sprinkles) 125 mg DAILY@1600 PO Last administered on 03/16/18at 15:36; Start 03/15/18 at 16:00; Stop 03/16/18 at 17:18; Status DC Divalproex Sodium (Depakote Sprinkles) 250 mg QHS PO Last administered on at 20:06; Start 03/14/18 at 23:00 Lorazepam (Ativan) 0.5 mg PRN BID PRN PO ANXIETY / AGITATION Last administered on 03/19/18at 02:45; Start 03/14/18 at 22:30 Memantine (Namenda) 10 mg BID PO Last administered on 03/24/18at 20:07; Start at 09:00 Quetiapine Fumarate (SEROquel) 25 mg DAILY PO Last administered on 03/21/18at 10 :07; Start 03/15/18 at 09:00; Stop 03/21/18 at 19:16; Status DC Acetaminophen (Tylenol) 650 mg PRN Q4HRS PRN PO PAIN / TEMP; Start 03/14/18 at 22:15 Throat Lozenges (Cepacol Sore Throat Lozenge) 1 pedro PRN Q2HR PRN MM SORE THROAT ; Start 03/14/18 at 22:15 Metoprolol Succinate (Toprol Xl) 25 mg DAILY PO Last administered on 03/24/18at 08:00; Start 03/15/18 at 09:00 Simethicone (Gas-X) 80 mg PRN Q6HRS PRN PO GAS / BLOATING; Start 03/14/18 at 22 :15 Acetaminophen (Tylenol) 500 mg TID PO Last administered on 03/24/18at 20:08; Start 03/14/18 at 23:00 Amlodipine Besylate (Norvasc) 10 mg DAILY PO Last administered on 03/23/18at 08: 06; Start 03/15/18 at 09:00; Stop 03/23/18 at 16:51; Status DC Lactase (Lactaid) 9,000 unit TIDAC PRN PO GI SYMPTOMS Last administered on 03/19at 18:35; Start 03/14/18 at 22:15 Al Hydroxide/Mg Hydroxide (Mylanta Plus Xs) 30 ml PRN Q6HRS PRN PO DYSPEPSIA; Start 03/14/18 at 22:15 Pantoprazole Sodium (Protonix) 40 mg DAILYAC PO Last administered on 03/24/18at 08:00; Start 03/15/18 at 07:30 Lactobacillus Rhamnosus (Culturelle) 1 cap DAILY PO Last administered on at 07:59; Start 03/15/18 at 09:00 Donepezil HCl (Aricept) 10 mg DAILY PO Last administered on 03/24/18at 07:59; Start 03/15/18 at 09:00 Influenza Virus Vaccine (Afluria Trivalent [id number] Syringe) 0.5 ml ONCE ONCE VAX IM Last administered on 03/15/18at 15:31; Start 03/15/18 at 14:15; Stop at 14:21; Status DC Divalproex Sodium (Depakote Sprinkles) 250 mg DAILY@1600 PO Last administered on 03/23/18at 17:55; Start 03/17/18 at 16:00 Mirtazapine (Remeron) 7.5 mg QHS PO Last administered on 03/18/18at 20:13; Start 03/16/18 at 21:00; Stop 03/19/18 at 17:04; Status DC Divalproex Sodium (Depakote Sprinkles) 125 mg DAILY PO Last administered on at 07:59; Start 03/17/18 at 09:00 Sertraline HCl (Zoloft) 25 mg DAILY PO Last administered on 03/23/18at 08:05; Start 03/18/18 at 09:00; Stop 03/23/18 at 11:51; Status DC Mirtazapine (Remeron) 15 mg QHS PO Last administered on 03/24/18at 20:06; Start 03/19/18 at 21:00 Trazodone HCl (Desyrel) 50 mg PRN QHS PRN PO INSOMNIA, MAY REPEAT X1; Start at 17:15 Amoxicillin/ Clavulanate Potassium (Augmentin 500/ 125mg) 1 tab BID PO Last administered on 03/24/18at 20:06; Start 03/19/18 at 21:00 Quetiapine Fumarate (SEROquel) 50 mg DAILY PO Last administered on 03/24/18at 08 :01; Start 03/22/18 at 09:00 Sertraline HCl (Zoloft) 50 mg DAILY PO Last administered on 03/24/18at 08:03; Start 03/24/18 at 09:00 Amlodipine Besylate (Norvasc) 10 mg QHS PO Last administered on 03/24/18at 20:07 ; Start 03/23/18 at 21:00 Active Scripts Active Reported Florastor (Saccharomyces Boulardii) 250 Mg Capsule 250 Mg PO DAILY Dairy Digest (Lactase) 9,000 Unit Tablet 9,000 Unit PO TIDAC Nexium Capsule (Esomeprazole Magnesium) 40 Mg Capsule.dr 40 Mg PO BID Namzaric 28 mg-10 mg Capsule (Memantine HCl/Donepezil HCl) 1 Each Cap.spr.24 1 Each PO DAILY Acetaminophen 500 Mg Tablet 1,000 Mg PO TID Rosalia-Lanta Liquid (Mag Hydrox/Al Hydrox/Simeth) 355 Ml Oral.susp 30 Ml PO PRN Q6HRS PRN Simethicone 80 Mg Tab.chew 80 Mg PO PRN Q6HRS PRN Cepacol Sore Throat Lozenge (Benzocaine/Menthol) 1 Each Lozenge 1 Each MM PRN Q2HR PRN Tylenol (Acetaminophen) 325 Mg Tablet 650 Mg PO PRN Q4HRS PRN Norvasc (Amlodipine Besylate) 10 Mg Tablet 10 Mg PO DAILY Metoprolol Succinate ( Xl ) (Metoprolol Succinate) 25 Mg Tab.er.24h 25 Mg PO DAILY Seroquel (Quetiapine Fumarate) 25 Mg Tablet 25 Mg PO DAILY Depakote Sprinkle (Divalproex Sodium) 125 Mg Cap.sprink 250 Mg PO QHS Depakote Sprinkle (Divalproex Sodium) 125 Mg Cap.sprink 125 Mg PO DAILY@1600 Ativan (Lorazepam) 0.5 Mg Tablet 0.5 Mg PO PRN BID PRN I have reviewed the current psychotropics carefully including drug interactions. Risk benefit ratio favors no change other than as noted in my dictated progress note. Diagnosis: Problems: (1) Medical clearance for psychiatric admission (2) Anxiety disorder (3) Dementia, vascular, with delusions (4) Dementia, vascular, with depression (5) Dementia in Alzheimer's disease with delusions (6) Dementia in Alzheimer's disease with depression (7) Impulse control disorder ANSON CORMIER MD Mar 24, 2018 20:47
--- NOTE | 2018-03-24 22:06 | PN ---
DATE: 03/22/2018 This is a late entry for 03/22/2018 covers elements not covered in my initial note. SUBJECTIVE: I met with the patient in the evening. The patient slept 8-1/2 hours previous night. Previous night, she was resistive to medications, confused, compliant with meds morning of 03/22/2018, somewhat overly affectionate with male patients, but not as much as she was at the [facility]. REVIEW OF SYSTEMS: No CV, , pulmonary, eye, ENT system symptoms on review. Gait unsteady with walker. Reliability poor. MENTAL STATUS EXAM: Oriented to herself. Insight, judgment, recent and remote memory, attention, concentration, fund of knowledge poor, consistent with her diagnosis mentioned in my initial note. PLAN: No change from initial note. Maintain Namenda, Depakote, Ativan p.r.n., Seroquel, Remeron and Zoloft. Adjust as clinically indicated. ANSON CORIMER MD DR: OK/onel JOB#: [id number] / [id number]
--- NOTE | 2018-03-25 00:33 | PN ---
DATE: 03/23/2018 This is a late entry for 03/23/2018 covers elements not covered in my initial note. SUBJECTIVE: I met with the patient in the evening and staffed at a treatment team meeting with the entire team in the morning. She remains confused. She is on one-on-one status, tends to walk away without the walker, slept 6 hours previous evening, has been flirting with male patients. REVIEW OF SYSTEMS: Ambulation impaired with walker. No CV, , pulmonary, eye, ENT system symptoms on review. Reliability poor. MENTAL STATUS EXAM: Oriented to herself. Insight, judgment, recent and remote memory, attention, concentration, fund of knowledge poor, consistent with her diagnosis mentioned in my initial note. PLAN: Increase Zoloft to 50 mg a day after she has been on 25 for 3 days. Rest unchanged per initial note. MAN Sally CORMIER MD DR: OK/onel JOB#: [id number] / [id number]
[2018-03-25 05:53] VITALS: BP 169/72
[2018-03-25] MEDS: SERTRALINE 50 MG TABLET. PO SCH (07:50)
[2018-03-25] MEDS: ACETAMINOPHEN 500 MG TABLET PO SCH ×3 (07:50→19:30)
[2018-03-25] MEDS: DIVALPROEX 125 MG CAP.SPRINK PO SCH ×3 (07:50→19:30)
[2018-03-25] MEDS: LACTOBACILLUS RHAMNOSUS GG 1 CAPSULE. PO SCH (07:51)
[2018-03-25] MEDS: DONEPEZIL HCL 10 MG TABLET PO SCH (07:51)
[2018-03-25] MEDS: PANTOPRAZOLE 40 MG TABLET. PO SCH (07:51)
[2018-03-25] MEDS: AMOXICILLIN/K CLAV 500/125MG TABLET. PO SCH (07:51)
[2018-03-25] MEDS: METOPROLOL SUCC 24HR ER 25 MG TAB.ER.24H. PO SCH (07:51)
[2018-03-25] MEDS: QUEtiapine 50 MG TABLET. PO SCH (07:51)
[2018-03-25] MEDS: MEMANTINE 10 MG TABLET. PO SCH ×2 (07:51→19:30)
[2018-03-25] MEDS: MAGNESIUM HYDROXIDE 2,400 MG/30 ML ORAL.SUSP. PO PRN (07:52)
[2018-03-25 15:53] VITALS: BP 129/75
[2018-03-25] MEDS: amLODIPine BESYLATE 10 MG TABLET PO SCH (19:30)
[2018-03-25] MEDS: MIRTAZAPINE 15 MG TABLET PO SCH (19:30)
--- NOTE | 2018-03-25 23:04 | PDOC ---
Exam Note: Zhang Note: Please also refer to the separate dictated note~for this date of service dictated separately.~Patient seen individually. Discussed the patient with Nursing staff reviewed the chart.~Reviewed interim history and current functioning. Reviewed vital signs,~Labs/ Radiology~and current medications noted below. Continue current treatment with the changes noted in the dictated addendum note Assessment: Vital Signs: Vital Signs Date Time Temp Pulse Resp B/P (MAP) Pulse Ox O2 Delivery O2 Flow Rate FiO2 03/25/18 19:30 76 129/75 03/25/18 15:53 97.0 20 97 03/25/18 05:53 Room Air I&O Intake and Output 03/25/18 07:00 Intake Total 600 ml Balance 600 ml Intake Oral 600 ml Current Medications: Meds: Current Medications Acetaminophen (Tylenol) 650 mg PRN Q6HRS PRN PO PAIN / TEMP; Start 03/14/18 at 22:00; Stop 03/14/18 at 22:25; Status DC Multi-Ingredient Ointment (Analgesic [place]) 1 noy PRN QID PRN TP MUSCLE PAIN; Start 03/14/18 at 22:00 Al Hydroxide/Mg Hydroxide (Mylanta Plus Xs) 15 ml PRN AFTMEALHC PRN PO DYSPEPSIA; Start 03/14/18 at 22:00; Stop 03/14/18 at 22:25; Status DC Magnesium Hydroxide (Milk Of Magnesia) 2,400 mg PRN QHS PRN PO CONSTIPATION Last administered on 03/25/18at 07:52; Start 03/14/18 at 22:00 Divalproex Sodium (Depakote Sprinkles) 125 mg DAILY@1600 PO Last administered on 03/16/18at 15:36; Start 03/15/18 at 16:00; Stop 03/16/18 at 17:18; Status DC Divalproex Sodium (Depakote Sprinkles) 250 mg QHS PO Last administered on at 19:30; Start 03/14/18 at 23:00 Lorazepam (Ativan) 0.5 mg PRN BID PRN PO ANXIETY / AGITATION Last administered on 03/19/18at 02:45; Start 03/14/18 at 22:30 Memantine (Namenda) 10 mg BID PO Last administered on 03/25/18at 19:30; Start at 09:00 Quetiapine Fumarate (SEROquel) 25 mg DAILY PO Last administered on 03/21/18at 10 :07; Start 03/15/18 at 09:00; Stop 03/21/18 at 19:16; Status DC Acetaminophen (Tylenol) 650 mg PRN Q4HRS PRN PO PAIN / TEMP; Start 03/14/18 at 22:15 Throat Lozenges (Cepacol Sore Throat Lozenge) 1 pedro PRN Q2HR PRN MM SORE THROAT ; Start 03/14/18 at 22:15 Metoprolol Succinate (Toprol Xl) 25 mg DAILY PO Last administered on 03/25/18 07:51; Start 03/15/18 at 09:00 Simethicone (Gas-X) 80 mg PRN Q6HRS PRN PO GAS / BLOATING; Start 03/14/18 at 22 :15 Acetaminophen (Tylenol) 500 mg TID PO Last administered on 03/25/18 19:30; Start 03/14/18 at 23:00 Amlodipine Besylate (Norvasc) 10 mg DAILY PO Last administered on 03/23/18at 08: 06; Start 03/15/18 at 09:00; Stop 03/23/18 at 16:51; Status DC Lactase (Lactaid) 9,000 unit TIDAC PRN PO GI SYMPTOMS Last administered on 03/19at 18:35; Start 03/14/18 at 22:15 Al Hydroxide/Mg Hydroxide (Mylanta Plus Xs) 30 ml PRN Q6HRS PRN PO DYSPEPSIA; Start 03/14/18 at 22:15 Pantoprazole Sodium (Protonix) 40 mg DAILYAC PO Last administered on 03/25/18 07:51; Start 03/15/18 at 07:30 Lactobacillus Rhamnosus (Culturelle) 1 cap DAILY PO Last administered on at 07:51; Start 03/15/18 at 09:00 Donepezil HCl (Aricept) 10 mg DAILY PO Last administered on 03/25/18 07:51; Start 03/15/18 at 09:00 Influenza Virus Vaccine (Afluria Trivalent [id number] Syringe) 0.5 ml ONCE ONCE VAX IM Last administered on 03/15/18at 15:31; Start 03/15/18 at 14:15; Stop at 14:21; Status DC Divalproex Sodium (Depakote Sprinkles) 250 mg DAILY@1600 PO Last administered on 03/25/18at 16:47; Start 03/17/18 at 16:00 Mirtazapine (Remeron) 7.5 mg QHS PO Last administered on 03/18/18at 20:13; Start 03/16/18 at 21:00; Stop 03/19/18 at 17:04; Status DC Divalproex Sodium (Depakote Sprinkles) 125 mg DAILY PO Last administered on 07:50; Start 03/17/18 at 09:00 Sertraline HCl (Zoloft) 25 mg DAILY PO Last administered on 03/23/18at 08:05; Start 03/18/18 at 09:00; Stop 03/23/18 at 11:51; Status DC Mirtazapine (Remeron) 15 mg QHS PO Last administered on 03/25/18at 19:30; Start 03/19/18 at 21:00 Trazodone HCl (Desyrel) 50 mg PRN QHS PRN PO INSOMNIA, MAY REPEAT X1; Start at 17:15 Amoxicillin/ Clavulanate Potassium (Augmentin 500/ 125mg) 1 tab BID PO Last administered on 03/25/18 07:51; Start 03/19/18 at 21:00; Stop 03/25/18 at 15:47 ; Status DC Quetiapine Fumarate (SEROquel) 50 mg DAILY PO Last administered on 03/25/18at 07 :51; Start 03/22/18 at 09:00 Sertraline HCl (Zoloft) 50 mg DAILY PO Last administered on 03/25/18at 07:50; Start 03/24/18 at 09:00 Amlodipine Besylate (Norvasc) 10 mg QHS PO Last administered on 03/25/18at 19:30 ; Start 03/23/18 at 21:00 Active Scripts Active Reported Florastor (Saccharomyces Boulardii) 250 Mg Capsule 250 Mg PO DAILY Dairy Digest (Lactase) 9,000 Unit Tablet 9,000 Unit PO TIDAC Nexium Capsule (Esomeprazole Magnesium) 40 Mg Capsule.dr 40 Mg PO BID Namzaric 28 mg-10 mg Capsule (Memantine HCl/Donepezil HCl) 1 Each Cap.spr.24 1 Each PO DAILY Acetaminophen 500 Mg Tablet 1,000 Mg PO TID Rosalia-Lanta Liquid (Mag Hydrox/Al Hydrox/Simeth) 355 Ml Oral.susp 30 Ml PO PRN Q6HRS PRN Simethicone 80 Mg Tab.chew 80 Mg PO PRN Q6HRS PRN Cepacol Sore Throat Lozenge (Benzocaine/Menthol) 1 Each Lozenge 1 Each MM PRN Q2HR PRN Tylenol (Acetaminophen) 325 Mg Tablet 650 Mg PO PRN Q4HRS PRN Norvasc (Amlodipine Besylate) 10 Mg Tablet 10 Mg PO DAILY Metoprolol Succinate ( Xl ) (Metoprolol Succinate) 25 Mg Tab.er.24h 25 Mg PO DAILY Seroquel (Quetiapine Fumarate) 25 Mg Tablet 25 Mg PO DAILY Depakote Sprinkle (Divalproex Sodium) 125 Mg Cap.sprink 250 Mg PO QHS Depakote Sprinkle (Divalproex Sodium) 125 Mg Cap.sprink 125 Mg PO DAILY@1600 Ativan (Lorazepam) 0.5 Mg Tablet 0.5 Mg PO PRN BID PRN I have reviewed the current psychotropics carefully including drug interactions. Risk benefit ratio favors no change other than as noted in my dictated progress note. Diagnosis: Problems: (1) Medical clearance for psychiatric admission (2) Anxiety disorder (3) Dementia, vascular, with delusions (4) Dementia, vascular, with depression (5) Dementia in Alzheimer's disease with delusions (6) Dementia in Alzheimer's disease with depression (7) Impulse control disorder ANSON CORMIER MD Mar 25, 2018 23:04
[2018-03-26 05:46] VITALS: BP 137/65
[2018-03-26] MEDS: LACTOBACILLUS RHAMNOSUS GG 1 CAPSULE. PO SCH (07:26)
[2018-03-26] MEDS: DONEPEZIL HCL 10 MG TABLET PO SCH (07:26)
[2018-03-26] MEDS: PANTOPRAZOLE 40 MG TABLET. PO SCH (07:26)
[2018-03-26] MEDS: DIVALPROEX 125 MG CAP.SPRINK PO SCH ×3 (07:27→20:05)
[2018-03-26] MEDS: QUEtiapine 50 MG TABLET. PO SCH (07:27)
[2018-03-26] MEDS: SERTRALINE 50 MG TABLET. PO SCH (07:27)
[2018-03-26] MEDS: MEMANTINE 10 MG TABLET. PO SCH ×2 (07:27→20:06)
[2018-03-26] MEDS: LACTASE 3,000 UNIT TABLET PO PRN (07:29)
[2018-03-26] MEDS: ACETAMINOPHEN 500 MG TABLET PO SCH ×3 (07:29→20:07)
[2018-03-26] MEDS: METOPROLOL SUCC 24HR ER 25 MG TAB.ER.24H. PO SCH (07:30)
[2018-03-26 15:16] VITALS: BP 157/73
--- NOTE | 2018-03-26 17:17 | PN ---
DATE: 03/24/2018 PSYCHIATRIC PROGRESS NOTE This is a late entry 03/24/2018 covers elements not covered in my initial note. SUBJECTIVE: I met with the patient in the evening of 03/24/2018. The patient slept 8-1/4 hours previous night. She has been confused, somewhat over animated with male patients, but not sexually aggressive. REVIEW OF SYSTEMS: No CV, , pulmonary, eye, ENT system symptoms on review. Reliability poor. Gait unsteady. MENTAL STATUS EXAM: Oriented to herself. Insight, judgment, recent and remote memory, attention, concentration, fund of knowledge poor, consistent with her diagnosis mentioned in my initial note. PLAN: No change from initial note. MAN Sally CORMIER MD DR: OK/onel JOB#: [id number] / [id number]
--- NOTE | 2018-03-26 20:04 | PDOC ---
Exam Note: Zhang Note: Please also refer to the separate dictated note~for this date of service dictated separately.~Patient seen individually. Discussed the patient with Nursing staff reviewed the chart.~Reviewed interim history and current functioning. Reviewed vital signs,~Labs/ Radiology~and current medications noted below. Continue current treatment with the changes noted in the dictated addendum note Assessment: Vital Signs: Vital Signs Date Time Temp Pulse Resp B/P (MAP) Pulse Ox O2 Delivery O2 Flow Rate FiO2 03/26/18 15:16 97.0 61 18 157/73 (101) 96 03/26/18 05:46 Room Air I&O Intake and Output 03/26/18 07:00 Intake Total 510 ml Balance 510 ml Intake Oral 510 ml # Bowel Movements 1 Current Medications: Meds: Current Medications Acetaminophen (Tylenol) 650 mg PRN Q6HRS PRN PO PAIN / TEMP; Start 03/14/18 at 22:00; Stop 03/14/18 at 22:25; Status DC Multi-Ingredient Ointment (Analgesic [place] [address]) 1 noy PRN QID PRN TP MUSCLE PAIN; Start 03/14/18 at 22:00 Al Hydroxide/Mg Hydroxide (Mylanta Plus Xs) 15 ml PRN AFTMEALHC PRN PO DYSPEPSIA; Start 03/14/18 at 22:00; Stop 03/14/18 at 22:25; Status DC Magnesium Hydroxide (Milk Of Magnesia) 2,400 mg PRN QHS PRN PO CONSTIPATION Last administered on 03/25/18at 07:52; Start 03/14/18 at 22:00 Divalproex Sodium (Depakote Sprinkles) 125 mg DAILY@1600 PO Last administered on 03/16/18at 15:36; Start 03/15/18 at 16:00; Stop 03/16/18 at 17:18; Status DC Divalproex Sodium (Depakote Sprinkles) 250 mg QHS PO Last administered on at 19:30; Start 03/14/18 at 23:00 Lorazepam (Ativan) 0.5 mg PRN BID PRN PO ANXIETY / AGITATION Last administered on 03/19/18at 02:45; Start 03/14/18 at 22:30 Memantine (Namenda) 10 mg BID PO Last administered on 03/26/18at 07:27; Start at 09:00 Quetiapine Fumarate (SEROquel) 25 mg DAILY PO Last administered on 03/21/18at 10 :07; Start 03/15/18 at 09:00; Stop 03/21/18 at 19:16; Status DC Acetaminophen (Tylenol) 650 mg PRN Q4HRS PRN PO PAIN / TEMP; Start 03/14/18 at 22:15 Throat Lozenges (Cepacol Sore Throat Lozenge) 1 pedro PRN Q2HR PRN MM SORE THROAT ; Start 03/14/18 at 22:15 Metoprolol Succinate (Toprol Xl) 25 mg DAILY PO Last administered on 03/26/18 07:30; Start 03/15/18 at 09:00 Simethicone (Gas-X) 80 mg PRN Q6HRS PRN PO GAS / BLOATING; Start 03/14/18 at 22 :15 Acetaminophen (Tylenol) 500 mg TID PO Last administered on 03/26/18at 13:34; Start 03/14/18 at 23:00 Amlodipine Besylate (Norvasc) 10 mg DAILY PO Last administered on 03/23/18at 08: 06; Start 03/15/18 at 09:00; Stop 03/23/18 at 16:51; Status DC Lactase (Lactaid) 9,000 unit TIDAC PRN PO GI SYMPTOMS Last administered on 03/26 07:29; Start 03/14/18 at 22:15 Al Hydroxide/Mg Hydroxide (Mylanta Plus Xs) 30 ml PRN Q6HRS PRN PO DYSPEPSIA; Start 03/14/18 at 22:15 Pantoprazole Sodium (Protonix) 40 mg DAILYAC PO Last administered on 03/26/18at 07:26; Start 03/15/18 at 07:30 Lactobacillus Rhamnosus (Culturelle) 1 cap DAILY PO Last administered on 07:26; Start 03/15/18 at 09:00 Donepezil HCl (Aricept) 10 mg DAILY PO Last administered on 03/26/18 07:26; Start 03/15/18 at 09:00 Influenza Virus Vaccine (Afluria Trivalent [id number] Syringe) 0.5 ml ONCE ONCE VAX IM Last administered on 03/15/18at 15:31; Start 03/15/18 at 14:15; Stop at 14:21; Status DC Divalproex Sodium (Depakote Sprinkles) 250 mg DAILY@1600 PO Last administered on 03/26/18at 17:31; Start 03/17/18 at 16:00 Mirtazapine (Remeron) 7.5 mg QHS PO Last administered on 03/18/18at 20:13; Start 03/16/18 at 21:00; Stop 03/19/18 at 17:04; Status DC Divalproex Sodium (Depakote Sprinkles) 125 mg DAILY PO Last administered on at 07:27; Start 03/17/18 at 09:00; Stop 03/26/18 at 17:57; Status DC Sertraline HCl (Zoloft) 25 mg DAILY PO Last administered on 03/23/18at 08:05; Start 03/18/18 at 09:00; Stop 03/23/18 at 11:51; Status DC Mirtazapine (Remeron) 15 mg QHS PO Last administered on 03/25/18at 19:30; Start 03/19/18 at 21:00 Trazodone HCl (Desyrel) 50 mg PRN QHS PRN PO INSOMNIA, MAY REPEAT X1; Start at 17:15 Amoxicillin/ Clavulanate Potassium (Augmentin 500/ 125mg) 1 tab BID PO Last administered on 03/25/18at 07:51; Start 03/19/18 at 21:00; Stop 03/25/18 at 15:47 ; Status DC Quetiapine Fumarate (SEROquel) 50 mg DAILY PO Last administered on 03/26/18at 07 :27; Start 03/22/18 at 09:00 Sertraline HCl (Zoloft) 50 mg DAILY PO Last administered on 03/26/18at 07:27; Start 03/24/18 at 09:00 Amlodipine Besylate (Norvasc) 10 mg QHS PO Last administered on 03/25/18at 19:30 ; Start 03/23/18 at 21:00 Divalproex Sodium (Depakote Sprinkles) 250 mg DAILY PO ; Start 03/27/18 at 09:00 Active Scripts Active Reported Florastor (Saccharomyces Boulardii) 250 Mg Capsule 250 Mg PO DAILY Dairy Digest (Lactase) 9,000 Unit Tablet 9,000 Unit PO TIDAC Nexium Capsule (Esomeprazole Magnesium) 40 Mg Capsule.dr 40 Mg PO BID Namzaric 28 mg-10 mg Capsule (Memantine HCl/Donepezil HCl) 1 Each Cap.spr.24 1 Each PO DAILY Acetaminophen 500 Mg Tablet 1,000 Mg PO TID Rosalia-Lanta Liquid (Mag Hydrox/Al Hydrox/Simeth) 355 Ml Oral.susp 30 Ml PO PRN Q6HRS PRN Simethicone 80 Mg Tab.chew 80 Mg PO PRN Q6HRS PRN Cepacol Sore Throat Lozenge (Benzocaine/Menthol) 1 Each Lozenge 1 Each MM PRN Q2HR PRN Tylenol (Acetaminophen) 325 Mg Tablet 650 Mg PO PRN Q4HRS PRN Norvasc (Amlodipine Besylate) 10 Mg Tablet 10 Mg PO DAILY Metoprolol Succinate ( Xl ) (Metoprolol Succinate) 25 Mg Tab.er.24h 25 Mg PO DAILY Seroquel (Quetiapine Fumarate) 25 Mg Tablet 25 Mg PO DAILY Depakote Sprinkle (Divalproex Sodium) 125 Mg Cap.sprink 250 Mg PO QHS Depakote Sprinkle (Divalproex Sodium) 125 Mg Cap.sprink 125 Mg PO DAILY@1600 Ativan (Lorazepam) 0.5 Mg Tablet 0.5 Mg PO PRN BID PRN I have reviewed the current psychotropics carefully including drug interactions. Risk benefit ratio favors no change other than as noted in my dictated progress note. Diagnosis: Problems: (1) Medical clearance for psychiatric admission (2) Anxiety disorder (3) Dementia, vascular, with delusions (4) Dementia, vascular, with depression (5) Dementia in Alzheimer's disease with delusions (6) Dementia in Alzheimer's disease with depression (7) Impulse control disorder ANSON CORMIER MD Mar 26, 2018 20:04
[2018-03-26] MEDS: MIRTAZAPINE 15 MG TABLET PO SCH (20:06)
[2018-03-26] MEDS: amLODIPine BESYLATE 10 MG TABLET PO SCH (20:06)
[2018-03-27 05:31] VITALS: BP 177/77
[2018-03-27] MEDS: QUEtiapine 50 MG TABLET. PO SCH (07:42)
[2018-03-27] MEDS: PANTOPRAZOLE 40 MG TABLET. PO SCH (07:43)
[2018-03-27] MEDS: MEMANTINE 10 MG TABLET. PO SCH ×2 (07:43→20:56)
[2018-03-27] MEDS: METOPROLOL SUCC 24HR ER 25 MG TAB.ER.24H. PO SCH (07:43)
[2018-03-27] MEDS: SERTRALINE 50 MG TABLET. PO SCH (07:43)
[2018-03-27] MEDS: ACETAMINOPHEN 500 MG TABLET PO SCH ×3 (07:43→20:55)
[2018-03-27] MEDS: DONEPEZIL HCL 10 MG TABLET PO SCH (07:43)
[2018-03-27] MEDS: LACTASE 3,000 UNIT TABLET PO PRN (07:44)
[2018-03-27] MEDS: LACTOBACILLUS RHAMNOSUS GG 1 CAPSULE. PO SCH (07:44)
[2018-03-27] MEDS: DIVALPROEX 125 MG CAP.SPRINK PO SCH ×3 (07:45→20:55)
[2018-03-27 16:15] VITALS: BP 151/84
--- NOTE | 2018-03-27 20:19 | PDOC ---
Exam Note: Zhang Note: Please also refer to the separate dictated note~for this date of service dictated separately.~Patient seen individually. Discussed the patient with Nursing staff reviewed the chart.~Reviewed interim history and current functioning. Reviewed vital signs,~Labs/ Radiology~and current medications noted below. Continue current treatment with the changes noted in the dictated addendum note Assessment: Vital Signs: Vital Signs Date Time Temp Pulse Resp B/P (MAP) Pulse Ox O2 Delivery O2 Flow Rate FiO2 03/27/18 16:15 97.5 71 18 151/84 (106) 94 03/26/18 05:46 Room Air I&O Intake and Output 03/27/18 07:00 Intake Total 560 ml Balance 560 ml Intake Oral 560 ml # Voids 1 # Bowel Movements 1 Current Medications: Meds: Current Medications Acetaminophen (Tylenol) 650 mg PRN Q6HRS PRN PO PAIN / TEMP; Start 03/14/18 at 22:00; Stop 03/14/18 at 22:25; Status DC Multi-Ingredient Ointment (Analgesic [place]) 1 noy PRN QID PRN TP MUSCLE PAIN; Start 03/14/18 at 22:00 Al Hydroxide/Mg Hydroxide (Mylanta Plus Xs) 15 ml PRN AFTMEALHC PRN PO DYSPEPSIA; Start 03/14/18 at 22:00; Stop 03/14/18 at 22:25; Status DC Magnesium Hydroxide (Milk Of Magnesia) 2,400 mg PRN QHS PRN PO CONSTIPATION Last administered on 03/25/18at 07:52; Start 03/14/18 at 22:00 Divalproex Sodium (Depakote Sprinkles) 125 mg DAILY@1600 PO Last administered on 03/16/18at 15:36; Start 03/15/18 at 16:00; Stop 03/16/18 at 17:18; Status DC Divalproex Sodium (Depakote Sprinkles) 250 mg QHS PO Last administered on at 20:05; Start 03/14/18 at 23:00 Lorazepam (Ativan) 0.5 mg PRN BID PRN PO ANXIETY / AGITATION Last administered on 03/19/18at 02:45; Start 03/14/18 at 22:30 Memantine (Namenda) 10 mg BID PO Last administered on 03/27/18at 07:43; Start at 09:00 Quetiapine Fumarate (SEROquel) 25 mg DAILY PO Last administered on 03/21/18at 10 :07; Start 03/15/18 at 09:00; Stop 03/21/18 at 19:16; Status DC Acetaminophen (Tylenol) 650 mg PRN Q4HRS PRN PO PAIN / TEMP; Start 03/14/18 at 22:15 Throat Lozenges (Cepacol Sore Throat Lozenge) 1 pedro PRN Q2HR PRN MM SORE THROAT ; Start 03/14/18 at 22:15 Metoprolol Succinate (Toprol Xl) 25 mg DAILY PO Last administered on 03/27/18 07:43; Start 03/15/18 at 09:00 Simethicone (Gas-X) 80 mg PRN Q6HRS PRN PO GAS / BLOATING; Start 03/14/18 at 22 :15 Acetaminophen (Tylenol) 500 mg TID PO Last administered on 03/27/18at 13:47; Start 03/14/18 at 23:00 Amlodipine Besylate (Norvasc) 10 mg DAILY PO Last administered on 03/23/18at 08: 06; Start 03/15/18 at 09:00; Stop 03/23/18 at 16:51; Status DC Lactase (Lactaid) 9,000 unit TIDAC PRN PO GI SYMPTOMS Last administered on 03/27 07:44; Start 03/14/18 at 22:15 Al Hydroxide/Mg Hydroxide (Mylanta Plus Xs) 30 ml PRN Q6HRS PRN PO DYSPEPSIA; Start 03/14/18 at 22:15 Pantoprazole Sodium (Protonix) 40 mg DAILYAC PO Last administered on 03/27/18 07:43; Start 03/15/18 at 07:30 Lactobacillus Rhamnosus (Culturelle) 1 cap DAILY PO Last administered on 07:44; Start 03/15/18 at 09:00 Donepezil HCl (Aricept) 10 mg DAILY PO Last administered on 03/27/18at 07:43; Start 03/15/18 at 09:00 Influenza Virus Vaccine (Afluria Trivalent [id number] Syringe) 0.5 ml ONCE ONCE VAX IM Last administered on 03/15/18at 15:31; Start 03/15/18 at 14:15; Stop at 14:21; Status DC Divalproex Sodium (Depakote Sprinkles) 250 mg DAILY@1600 PO Last administered on 03/27/18at 17:32; Start 03/17/18 at 16:00 Mirtazapine (Remeron) 7.5 mg QHS PO Last administered on 03/18/18at 20:13; Start 03/16/18 at 21:00; Stop 03/19/18 at 17:04; Status DC Divalproex Sodium (Depakote Sprinkles) 125 mg DAILY PO Last administered on at 07:27; Start 03/17/18 at 09:00; Stop 03/26/18 at 17:57; Status DC Sertraline HCl (Zoloft) 25 mg DAILY PO Last administered on 03/23/18at 08:05; Start 03/18/18 at 09:00; Stop 03/23/18 at 11:51; Status DC Mirtazapine (Remeron) 15 mg QHS PO Last administered on 03/26/18at 20:06; Start 03/19/18 at 21:00 Trazodone HCl (Desyrel) 50 mg PRN QHS PRN PO INSOMNIA, MAY REPEAT X1; Start at 17:15 Amoxicillin/ Clavulanate Potassium (Augmentin 500/ 125mg) 1 tab BID PO Last administered on 03/25/18at 07:51; Start 03/19/18 at 21:00; Stop 03/25/18 at 15:47 ; Status DC Quetiapine Fumarate (SEROquel) 50 mg DAILY PO Last administered on 03/27/18at 07 :42; Start 03/22/18 at 09:00 Sertraline HCl (Zoloft) 50 mg DAILY PO Last administered on 03/27/18at 07:43; Start 03/24/18 at 09:00 Amlodipine Besylate (Norvasc) 10 mg QHS PO Last administered on 03/26/18at 20:06 ; Start 03/23/18 at 21:00 Divalproex Sodium (Depakote Sprinkles) 250 mg DAILY PO Last administered on 10/ 1/18at 07:45; Start 03/27/18 at 09:00 Active Scripts Active Reported Florastor (Saccharomyces Boulardii) 250 Mg Capsule 250 Mg PO DAILY Dairy Digest (Lactase) 9,000 Unit Tablet 9,000 Unit PO TIDAC Nexium Capsule (Esomeprazole Magnesium) 40 Mg Capsule.dr 40 Mg PO BID Namzaric 28 mg-10 mg Capsule (Memantine HCl/Donepezil HCl) 1 Each Cap.spr.24 1 Each PO DAILY Acetaminophen 500 Mg Tablet 1,000 Mg PO TID Rosalia-Lanta Liquid (Mag Hydrox/Al Hydrox/Simeth) 355 Ml Oral.susp 30 Ml PO PRN Q6HRS PRN Simethicone 80 Mg Tab.chew 80 Mg PO PRN Q6HRS PRN Cepacol Sore Throat Lozenge (Benzocaine/Menthol) 1 Each Lozenge 1 Each MM PRN Q2HR PRN Tylenol (Acetaminophen) 325 Mg Tablet 650 Mg PO PRN Q4HRS PRN Norvasc (Amlodipine Besylate) 10 Mg Tablet 10 Mg PO DAILY Metoprolol Succinate ( Xl ) (Metoprolol Succinate) 25 Mg Tab.er.24h 25 Mg PO DAILY Seroquel (Quetiapine Fumarate) 25 Mg Tablet 25 Mg PO DAILY Depakote Sprinkle (Divalproex Sodium) 125 Mg Cap.sprink 250 Mg PO QHS Depakote Sprinkle (Divalproex Sodium) 125 Mg Cap.sprink 125 Mg PO DAILY@1600 Ativan (Lorazepam) 0.5 Mg Tablet 0.5 Mg PO PRN BID PRN I have reviewed the current psychotropics carefully including drug interactions. Risk benefit ratio favors no change other than as noted in my dictated progress note. Diagnosis: Problems: (1) Medical clearance for psychiatric admission (2) Anxiety disorder (3) Dementia, vascular, with delusions (4) Dementia, vascular, with depression (5) Dementia in Alzheimer's disease with delusions (6) Dementia in Alzheimer's disease with depression (7) Impulse control disorder ANSON CORMIER MD Mar 27, 2018 20:19
[2018-03-27] MEDS: MIRTAZAPINE 15 MG TABLET PO SCH (20:56)
[2018-03-27] MEDS: amLODIPine BESYLATE 10 MG TABLET PO SCH (20:56)
--- NOTE | 2018-03-27 21:50 | PN ---
DATE: 03/25/2018 PSYCHIATRIC PROGRESS NOTE This late entry 03/25/2018 covers elements not covered in my initial note. SUBJECTIVE: I met with the patient in the evening. The patient slept 6-1/2 hours previous evening. She remains confused, wanders into other patient's rooms, lays on their beds, oblivious of what she is doing. REVIEW OF SYSTEMS: Ambulation impaired with walker. No CV, , pulmonary, eye, ENT system symptoms on review. Vision is poor. MENTAL STATUS EXAM: Oriented to herself. Insight, judgment, recent and remote memory, attention, concentration, fund of knowledge poor, consistent with her diagnosis mentioned in my initial note. PLAN: No change from initial note. She was holding my hand as I met with her, but not sexually inappropriate, which is an improvement. MAN Sally CORMIER MD DR: OK/onel JOB#: [id number] / [id number]
--- NOTE | 2018-03-27 22:03 | PN ---
DATE: 03/26/2018 PSYCHIATRIC PROGRESS NOTE This late entry 03/26/2018 covers elements not covered in my initial note. SUBJECTIVE: I met with the patient in the evening. The patient slept 7 hours previous night. She was doing reasonably well until about 5 p.m., then she put herself on the floor and was trying to run over staff with a walker. She sleeps off and on during the day, intermittently agitated. REVIEW OF SYSTEMS: Poor vision, impaired ambulation with walker. No CV, , pulmonary, ENT system symptoms on review. Reliability poor. MENTAL STATUS EXAM: Oriented to herself. Insight, judgment, recent and remote memory, attention, concentration, fund of knowledge poor, consistent with her diagnosis mentioned in my initial note. PLAN: Valproic acid level is subtherapeutic. We will go ahead and increase Depakote from 1.25 a.m. to 50 at 4:00 p.m., and at bedtime to 50 t.i.d. Check CBC, CMP, valproic acid level in 3 days since her level on the prior dosage was 44 subtherapeutic. Rest unchanged. Amoxil for UTI has been discontinued. MAN Sally CORMIER MD DR: OK/onel JOB#: [id number] / [id number]
[2018-03-28 05:33] VITALS: BP 148/70
[2018-03-28] MEDS: METOPROLOL SUCC 24HR ER 25 MG TAB.ER.24H. PO SCH (07:32)
[2018-03-28] MEDS: PANTOPRAZOLE 40 MG TABLET. PO SCH (07:32)
[2018-03-28] MEDS: DONEPEZIL HCL 10 MG TABLET PO SCH (07:32)
[2018-03-28] MEDS: SERTRALINE 50 MG TABLET. PO SCH (07:32)
[2018-03-28] MEDS: QUEtiapine 50 MG TABLET. PO SCH (07:33)
[2018-03-28] MEDS: LACTOBACILLUS RHAMNOSUS GG 1 CAPSULE. PO SCH (07:33)
[2018-03-28] MEDS: ACETAMINOPHEN 500 MG TABLET PO SCH ×3 (07:33→20:15)
[2018-03-28] MEDS: DIVALPROEX 125 MG CAP.SPRINK PO SCH ×3 (07:35→20:14)
[2018-03-28] MEDS: MEMANTINE 10 MG TABLET. PO SCH ×2 (07:36→20:22)
[2018-03-28 15:57] VITALS: BP 149/73
[2018-03-28] MEDS: MAGNESIUM HYDROXIDE 2,400 MG/30 ML ORAL.SUSP. PO PRN (18:20)
[2018-03-28] MEDS: MIRTAZAPINE 15 MG TABLET PO SCH (20:14)
[2018-03-28] MEDS: amLODIPine BESYLATE 10 MG TABLET PO SCH (20:15)
--- NOTE | 2018-03-28 20:44 | PDOC ---
Exam Note: Zhang Note: Please also refer to the separate dictated note~for this date of service dictated separately.~Patient seen individually. Discussed the patient with Nursing staff reviewed the chart.~Reviewed interim history and current functioning. Reviewed vital signs,~Labs/ Radiology~and current medications noted below. Continue current treatment with the changes noted in the dictated addendum note Assessment: Vital Signs: Vital Signs Date Time Temp Pulse Resp B/P (MAP) Pulse Ox O2 Delivery O2 Flow Rate FiO2 03/28/18 20:15 62 149/73 03/28/18 15:57 96.9 18 97 Room Air I&O Intake and Output 03/28/18 07:00 Intake Total 720 ml Balance 720 ml Intake Oral 720 ml # Voids 1 Current Medications: Meds: Current Medications Acetaminophen (Tylenol) 650 mg PRN Q6HRS PRN PO PAIN / TEMP; Start 03/14/18 at 22:00; Stop 03/14/18 at 22:25; Status DC Multi-Ingredient Ointment (Analgesic [place]) 1 noy PRN QID PRN TP MUSCLE PAIN; Start 03/14/18 at 22:00 Al Hydroxide/Mg Hydroxide (Mylanta Plus Xs) 15 ml PRN AFTMEALHC PRN PO DYSPEPSIA; Start 03/14/18 at 22:00; Stop 03/14/18 at 22:25; Status DC Magnesium Hydroxide (Milk Of Magnesia) 2,400 mg PRN QHS PRN PO CONSTIPATION Last administered on 03/28/18at 18:20; Start 03/14/18 at 22:00 Divalproex Sodium (Depakote Sprinkles) 125 mg DAILY@1600 PO Last administered on 03/16/18at 15:36; Start 03/15/18 at 16:00; Stop 03/16/18 at 17:18; Status DC Divalproex Sodium (Depakote Sprinkles) 250 mg QHS PO Last administered on at 20:14; Start 03/14/18 at 23:00 Lorazepam (Ativan) 0.5 mg PRN BID PRN PO ANXIETY / AGITATION Last administered on 03/19/18at 02:45; Start 03/14/18 at 22:30 Memantine (Namenda) 10 mg BID PO Last administered on 03/28/18at 20:22; Start at 09:00 Quetiapine Fumarate (SEROquel) 25 mg DAILY PO Last administered on 03/21/18at 10 :07; Start 03/15/18 at 09:00; Stop 03/21/18 at 19:16; Status DC Acetaminophen (Tylenol) 650 mg PRN Q4HRS PRN PO PAIN / TEMP; Start 03/14/18 at 22:15 Throat Lozenges (Cepacol Sore Throat Lozenge) 1 pedro PRN Q2HR PRN MM SORE THROAT ; Start 03/14/18 at 22:15 Metoprolol Succinate (Toprol Xl) 25 mg DAILY PO Last administered on 03/28/18 07:32; Start 03/15/18 at 09:00 Simethicone (Gas-X) 80 mg PRN Q6HRS PRN PO GAS / BLOATING; Start 03/14/18 at 22 :15 Acetaminophen (Tylenol) 500 mg TID PO Last administered on 03/28/18at 20:15; Start 03/14/18 at 23:00 Amlodipine Besylate (Norvasc) 10 mg DAILY PO Last administered on 03/23/18at 08: 06; Start 03/15/18 at 09:00; Stop 03/23/18 at 16:51; Status DC Lactase (Lactaid) 9,000 unit TIDAC PRN PO GI SYMPTOMS Last administered on 03/27at 07:44; Start 03/14/18 at 22:15 Al Hydroxide/Mg Hydroxide (Mylanta Plus Xs) 30 ml PRN Q6HRS PRN PO DYSPEPSIA; Start 03/14/18 at 22:15 Pantoprazole Sodium (Protonix) 40 mg DAILYAC PO Last administered on 03/28/18 07:32; Start 03/15/18 at 07:30 Lactobacillus Rhamnosus (Culturelle) 1 cap DAILY PO Last administered on 07:33; Start 03/15/18 at 09:00 Donepezil HCl (Aricept) 10 mg DAILY PO Last administered on 03/28/18 07:32; Start 03/15/18 at 09:00 Influenza Virus Vaccine (Afluria Trivalent [id number] Syringe) 0.5 ml ONCE ONCE VAX IM Last administered on 03/15/18at 15:31; Start 03/15/18 at 14:15; Stop at 14:21; Status DC Divalproex Sodium (Depakote Sprinkles) 250 mg DAILY@1600 PO Last administered on 03/28/18at 16:09; Start 03/17/18 at 16:00 Mirtazapine (Remeron) 7.5 mg QHS PO Last administered on 03/18/18at 20:13; Start 03/16/18 at 21:00; Stop 03/19/18 at 17:04; Status DC Divalproex Sodium (Depakote Sprinkles) 125 mg DAILY PO Last administered on at 07:27; Start 03/17/18 at 09:00; Stop 03/26/18 at 17:57; Status DC Sertraline HCl (Zoloft) 25 mg DAILY PO Last administered on 03/23/18at 08:05; Start 03/18/18 at 09:00; Stop 03/23/18 at 11:51; Status DC Mirtazapine (Remeron) 15 mg QHS PO Last administered on 03/28/18at 20:14; Start 03/19/18 at 21:00 Trazodone HCl (Desyrel) 50 mg PRN QHS PRN PO INSOMNIA, MAY REPEAT X1; Start at 17:15 Amoxicillin/ Clavulanate Potassium (Augmentin 500/ 125mg) 1 tab BID PO Last administered on 03/25/18at 07:51; Start 03/19/18 at 21:00; Stop 03/25/18 at 15:47 ; Status DC Quetiapine Fumarate (SEROquel) 50 mg DAILY PO Last administered on 03/28/18at 07 :33; Start 03/22/18 at 09:00 Sertraline HCl (Zoloft) 50 mg DAILY PO Last administered on 03/28/18 07:32; Start 03/24/18 at 09:00 Amlodipine Besylate (Norvasc) 10 mg QHS PO Last administered on 03/28/18 20:15 ; Start 03/23/18 at 21:00 Divalproex Sodium (Depakote Sprinkles) 250 mg DAILY PO Last administered on 03/28/18at 07:35; Start 03/27/18 at 09:00 Active Scripts Active Reported Florastor (Saccharomyces Boulardii) 250 Mg Capsule 250 Mg PO DAILY Dairy Digest (Lactase) 9,000 Unit Tablet 9,000 Unit PO TIDAC Nexium Capsule (Esomeprazole Magnesium) 40 Mg Capsule.dr 40 Mg PO BID Namzaric 28 mg-10 mg Capsule (Memantine HCl/Donepezil HCl) 1 Each Cap.spr.24 1 Each PO DAILY Acetaminophen 500 Mg Tablet 1,000 Mg PO TID Rosalia-Lanta Liquid (Mag Hydrox/Al Hydrox/Simeth) 355 Ml Oral.susp 30 Ml PO PRN Q6HRS PRN Simethicone 80 Mg Tab.chew 80 Mg PO PRN Q6HRS PRN Cepacol Sore Throat Lozenge (Benzocaine/Menthol) 1 Each Lozenge 1 Each MM PRN Q2HR PRN Tylenol (Acetaminophen) 325 Mg Tablet 650 Mg PO PRN Q4HRS PRN Norvasc (Amlodipine Besylate) 10 Mg Tablet 10 Mg PO DAILY Metoprolol Succinate ( Xl ) (Metoprolol Succinate) 25 Mg Tab.er.24h 25 Mg PO DAILY Seroquel (Quetiapine Fumarate) 25 Mg Tablet 25 Mg PO DAILY Depakote Sprinkle (Divalproex Sodium) 125 Mg Cap.sprink 250 Mg PO QHS Depakote Sprinkle (Divalproex Sodium) 125 Mg Cap.sprink 125 Mg PO DAILY@1600 Ativan (Lorazepam) 0.5 Mg Tablet 0.5 Mg PO PRN BID PRN I have reviewed the current psychotropics carefully including drug interactions. Risk benefit ratio favors no change other than as noted in my dictated progress note. Diagnosis: Problems: (1) Medical clearance for psychiatric admission (2) Anxiety disorder (3) Dementia, vascular, with delusions (4) Dementia, vascular, with depression (5) Dementia in Alzheimer's disease with delusions (6) Dementia in Alzheimer's disease with depression (7) Impulse control disorder ANSON CORMIER MD Mar 28, 2018 20:44
--- NOTE | 2018-03-28 21:26 | PN ---
DATE: 03/27/2018 This is a late entry for 03/27/2018 covers elements not covered in my initial note. SUBJECTIVE: I met with the patient in the evening. The patient remains confused, slept 7 hours previous evening, wanders in and out of everyone else's room, sleeps off and on during the day, naps in others beds. She has not been aggressive and sexual proclivity towards other demented patient is much improved. REVIEW OF SYSTEMS: Ambulation impaired. No CV, , pulmonary, eye, ENT system symptoms on review. MENTAL STATUS EXAM: Oriented to herself. Insight, judgment, recent and remote memory, attention, concentration, fund of knowledge poor, consistent with her diagnosis mentioned in my initial note. IMPRESSION: Major neurocognitive disorder, Alzheimer, vascular with delusion, depression, behavioral disturbance. Rest unchanged. PLAN: No change from initial note. Continue Depakote, which has been increased. Labs are awaited. Rest unchanged. MAN Sally CORMIER MD DR: OK/onel JOB#: [id number] / [id number]
[2018-03-29 05:22] VITALS: BP 175/70
[2018-03-29 07:22] LABS: BASO % 0 % (0-3); EOS # 0.3 x10^3/uL (0.0-0.7); EOS % 2 % (0-3); HEMOGLOBIN 11.3 g/dL (12.0-15.5); LYMPH # 2.7 x10^3/uL (1.0-4.8); LYMPH % 22 % (24-48); MEAN CORPUSCULAR HEMOGLOBIN 30 pg (25-35); MEAN CORPUSCULAR HGB CONC 32 g/dL (31-37); MEAN CORPUSCULAR VOLUME 92 fL (79-100); MONO % 8 % (0-9); NEUT # 8.4 x10^3uL (1.8-7.7); NEUT % 67 % (31-73); PLATELET COUNT 263 x10^3/uL (140-400); RED CELL DISTRIBUTION WIDTH 14.1 % (11.5-14.5); WHITE BLOOD COUNT 12.4 x10^3/uL (4.0-11.0)
[2018-03-29] MEDS: PANTOPRAZOLE 40 MG TABLET. PO SCH ×2 (07:30→09:56)
[2018-03-29] MEDS: MEMANTINE 10 MG TABLET. PO SCH ×2 (09:55→19:31)
[2018-03-29] MEDS: SERTRALINE 50 MG TABLET. PO SCH (09:55)
[2018-03-29] MEDS: QUEtiapine 50 MG TABLET. PO SCH (09:56)
[2018-03-29] MEDS: DIVALPROEX 125 MG CAP.SPRINK PO SCH ×3 (09:56→19:27)
[2018-03-29] MEDS: LACTOBACILLUS RHAMNOSUS GG 1 CAPSULE. PO SCH (09:56)
[2018-03-29] MEDS: DONEPEZIL HCL 10 MG TABLET PO SCH ×2 (09:56→19:32)
[2018-03-29] MEDS: ACETAMINOPHEN 500 MG TABLET PO SCH ×3 (09:56→19:27)
[2018-03-29 11:36] LABS: ALBUMIN 3.1 g/dL (3.4-5.0); ALBUMIN/GLOBULIN RATIO 0.8 (1.0-1.7); CALCIUM 9.3 mg/dL (8.5-10.1); CREATININE 1.6 mg/dL (0.6-1.0); GFR 30.6; POTASSIUM 4.4 mmol/L (3.5-5.1); TOTAL BILIRUBIN 0.2 mg/dL (0.2-1.0); TOTAL PROTEIN 6.8 g/dL (6.4-8.2)
[2018-03-29] MEDS: METOPROLOL SUCC 24HR ER 25 MG TAB.ER.24H. PO SCH (11:55)
--- NOTE | 2018-03-29 15:58 | RAD ---
AP chest, 03/29/2018: HISTORY: Confusion The patient is rotated to the right. The heart is at the upper limits of normal in size. There is calcific plaquing of the aorta. The pulmonary vascularity is normal. There is a moderate sized left midlung opacity raising the possibility of a neoplasm. The right lung is clear. There is no evidence of pleural fluid. IMPRESSION: Moderate left midlung opacity with diagnostic considerations including a pulmonary neoplasm versus round pneumonia. CT scanning of the chest is suggested for further evaluation. Electronically signed by: Bharath Ibarra MD (03/29/2018 3:54 PM) [facility]
[2018-03-29 16:34] VITALS: BP 102/66
[2018-03-29] MEDS: MIRTAZAPINE 15 MG TABLET PO SCH (19:27)
[2018-03-29 19:45] VITALS: BP 133/63
[2018-03-29] MEDS: amLODIPine BESYLATE 10 MG TABLET PO SCH (19:47)
--- NOTE | 2018-03-29 21:08 | PDOC ---
Exam Note: Zhang Note: Please also refer to the separate dictated note~for this date of service dictated separately.~Patient seen individually. Discussed the patient with Nursing staff reviewed the chart.~Reviewed interim history and current functioning. Reviewed vital signs,~Labs/ Radiology~and current medications noted below. Continue current treatment with the changes noted in the dictated addendum note Assessment: Vital Signs: Vital Signs Date Time Temp Pulse Resp B/P (MAP) Pulse Ox O2 Delivery O2 Flow Rate FiO2 03/29/18 19:47 74 133/63 03/29/18 19:45 99.0 18 96 Room Air I&O Intake and Output 03/29/18 07:00 Intake Total 480 ml Balance 480 ml Intake Oral 480 ml # Voids 1 # Bowel Movements 3 Labs: Laboratory Tests Test 03/29/18 06:41 White Blood Count 12.4 x10^3/uL (4.0-11.0) H Red Blood Count 3.80 x10^6/uL (3.50-5.40) Hemoglobin 11.3 g/dL (12.0-15.5) L Hematocrit 35.0 % (36.0-47.0) L Mean Corpuscular Volume 92 fL (79-100) Mean Corpuscular Hemoglobin 30 pg (25-35) Mean Corpuscular Hemoglobin Concent 32 g/dL (31-37) Red Cell Distribution Width 14.1 % (11.5-14.5) Platelet Count 263 x10^3/uL (140-400) Neutrophils (%) (Auto) 67 % (31-73) Lymphocytes (%) (Auto) 22 % (24-48) L Monocytes (%) (Auto) 8 % (0-9) Eosinophils (%) (Auto) 2 % (0-3) Basophils (%) (Auto) 0 % (0-3) Neutrophils # (Auto) 8.4 x10^3uL (1.8-7.7) H Lymphocytes # (Auto) 2.7 x10^3/uL (1.0-4.8) Monocytes # (Auto) 1.0 x10^3/uL (0.0-1.1) Eosinophils # (Auto) 0.3 x10^3/uL (0.0-0.7) Basophils # (Auto) 0.0 x10^3/uL (0.0-0.2) Sodium Level 145 mmol/L (136-145) Potassium Level 4.4 mmol/L (3.5-5.1) Chloride Level 108 mmol/L (98-107) H Carbon Dioxide Level 33 mmol/L (21-32) H Anion Gap 4 (6-14) L Blood Urea Nitrogen 28 mg/dL (7-20) H Creatinine 1.6 mg/dL (0.6-1.0) H Estimated GFR (Cockcroft-Gault) 30.6 BUN/Creatinine Ratio 18 (6-20) Glucose Level 87 mg/dL (70-99) Calcium Level 9.3 mg/dL (8.5-10.1) Total Bilirubin 0.2 mg/dL (0.2-1.0) Aspartate Amino Transferase (AST) 23 U/L (15-37) Alanine Aminotransferase (ALT) 21 U/L (14-59) Alkaline Phosphatase 139 U/L (46-116) H Total Protein 6.8 g/dL (6.4-8.2) Albumin 3.1 g/dL (3.4-5.0) L Albumin/Globulin Ratio 0.8 (1.0-1.7) L Current Medications: Meds: Current Medications Acetaminophen (Tylenol) 650 mg PRN Q6HRS PRN PO PAIN / TEMP; Start 03/14/18 at 22:00; Stop 03/14/18 at 22:25; Status DC Multi-Ingredient Ointment (Analgesic [place]) 1 noy PRN QID PRN TP MUSCLE PAIN; Start 03/14/18 at 22:00 Al Hydroxide/Mg Hydroxide (Mylanta Plus Xs) 15 ml PRN AFTMEALHC PRN PO DYSPEPSIA; Start 03/14/18 at 22:00; Stop 03/14/18 at 22:25; Status DC Magnesium Hydroxide (Milk Of Magnesia) 2,400 mg PRN QHS PRN PO CONSTIPATION Last administered on 03/28/18at 18:20; Start 03/14/18 at 22:00 Divalproex Sodium (Depakote Sprinkles) 125 mg DAILY@1600 PO Last administered on 03/16/18at 15:36; Start 03/15/18 at 16:00; Stop 03/16/18 at 17:18; Status DC Divalproex Sodium (Depakote Sprinkles) 250 mg QHS PO Last administered on 19:27; Start 03/14/18 at 23:00 Lorazepam (Ativan) 0.5 mg PRN BID PRN PO ANXIETY / AGITATION Last administered on 03/19/18at 02:45; Start 03/14/18 at 22:30 Memantine (Namenda) 10 mg BID PO Last administered on 03/29/18 19:31; Start at 09:00 Quetiapine Fumarate (SEROquel) 25 mg DAILY PO Last administered on 03/21/18 10 :07; Start 03/15/18 at 09:00; Stop 03/21/18 at 19:16; Status DC Acetaminophen (Tylenol) 650 mg PRN Q4HRS PRN PO PAIN / TEMP; Start 03/14/18 at 22:15 Throat Lozenges (Cepacol Sore Throat Lozenge) 1 pedro PRN Q2HR PRN MM SORE THROAT ; Start 03/14/18 at 22:15 Metoprolol Succinate (Toprol Xl) 25 mg DAILY PO Last administered on 03/29/18 11:55; Start 03/15/18 at 09:00 Simethicone (Gas-X) 80 mg PRN Q6HRS PRN PO GAS / BLOATING; Start 03/14/18 at 22 :15 Acetaminophen (Tylenol) 500 mg TID PO Last administered on 03/29/18 19:27; Start 03/14/18 at 23:00 Amlodipine Besylate (Norvasc) 10 mg DAILY PO Last administered on 03/23/18at 08: 06; Start 03/15/18 at 09:00; Stop 03/23/18 at 16:51; Status DC Lactase (Lactaid) 9,000 unit TIDAC PRN PO GI SYMPTOMS Last administered on 03/27 07:44; Start 03/14/18 at 22:15 Al Hydroxide/Mg Hydroxide (Mylanta Plus Xs) 30 ml PRN Q6HRS PRN PO DYSPEPSIA; Start 03/14/18 at 22:15 Pantoprazole Sodium (Protonix) 40 mg DAILYAC PO Last administered on 03/29/18at 09:56; Start 03/15/18 at 07:30 Lactobacillus Rhamnosus (Culturelle) 1 cap DAILY PO Last administered on 09:56; Start 03/15/18 at 09:00 Donepezil HCl (Aricept) 10 mg DAILY PO Last administered on 03/29/18at 19:32; Start 03/15/18 at 09:00 Influenza Virus Vaccine (Afluria Trivalent [id number] Syringe) 0.5 ml ONCE ONCE VAX IM Last administered on 03/15/18at 15:31; Start 03/15/18 at 14:15; Stop at 14:21; Status DC Divalproex Sodium (Depakote Sprinkles) 250 mg DAILY@1600 PO Last administered on 03/29/18at 16:54; Start 03/17/18 at 16:00 Mirtazapine (Remeron) 7.5 mg QHS PO Last administered on 03/18/18at 20:13; Start 03/16/18 at 21:00; Stop 03/19/18 at 17:04; Status DC Divalproex Sodium (Depakote Sprinkles) 125 mg DAILY PO Last administered on 07:27; Start 03/17/18 at 09:00; Stop 03/26/18 at 17:57; Status DC Sertraline HCl (Zoloft) 25 mg DAILY PO Last administered on 03/23/18at 08:05; Start 03/18/18 at 09:00; Stop 03/23/18 at 11:51; Status DC Mirtazapine (Remeron) 15 mg QHS PO Last administered on 03/29/18at 19:27; Start 03/19/18 at 21:00 Trazodone HCl (Desyrel) 50 mg PRN QHS PRN PO INSOMNIA, MAY REPEAT X1; Start at 17:15 Amoxicillin/ Clavulanate Potassium (Augmentin 500/ 125mg) 1 tab BID PO Last administered on 03/25/18at 07:51; Start 03/19/18 at 21:00; Stop 03/25/18 at 15:47 ; Status DC Quetiapine Fumarate (SEROquel) 50 mg DAILY PO Last administered on 03/29/18at 09 :56; Start 03/22/18 at 09:00 Sertraline HCl (Zoloft) 50 mg DAILY PO Last administered on 03/29/18at 09:55; Start 03/24/18 at 09:00 Amlodipine Besylate (Norvasc) 10 mg QHS PO Last administered on 03/29/18at 19:47 ; Start 03/23/18 at 21:00 Divalproex Sodium (Depakote Sprinkles) 250 mg DAILY PO Last administered on 03/29/18at 09:56; Start 03/27/18 at 09:00 Active Scripts Active Reported Florastor (Saccharomyces Boulardii) 250 Mg Capsule 250 Mg PO DAILY Dairy Digest (Lactase) 9,000 Unit Tablet 9,000 Unit PO TIDAC Nexium Capsule (Esomeprazole Magnesium) 40 Mg Capsule.dr 40 Mg PO BID Namzaric 28 mg-10 mg Capsule (Memantine HCl/Donepezil HCl) 1 Each Cap.spr.24 1 Each PO DAILY Acetaminophen 500 Mg Tablet 1,000 Mg PO TID Rosalia-Lanta Liquid (Mag Hydrox/Al Hydrox/Simeth) 355 Ml Oral.susp 30 Ml PO PRN Q6HRS PRN Simethicone 80 Mg Tab.chew 80 Mg PO PRN Q6HRS PRN Cepacol Sore Throat Lozenge (Benzocaine/Menthol) 1 Each Lozenge 1 Each MM PRN Q2HR PRN Tylenol (Acetaminophen) 325 Mg Tablet 650 Mg PO PRN Q4HRS PRN Norvasc (Amlodipine Besylate) 10 Mg Tablet 10 Mg PO DAILY Metoprolol Succinate ( Xl ) (Metoprolol Succinate) 25 Mg Tab.er.24h 25 Mg PO DAILY Seroquel (Quetiapine Fumarate) 25 Mg Tablet 25 Mg PO DAILY Depakote Sprinkle (Divalproex Sodium) 125 Mg Cap.sprink 250 Mg PO QHS Depakote Sprinkle (Divalproex Sodium) 125 Mg Cap.sprink 125 Mg PO DAILY@1600 Ativan (Lorazepam) 0.5 Mg Tablet 0.5 Mg PO PRN BID PRN I have reviewed the current psychotropics carefully including drug interactions. Risk benefit ratio favors no change other than as noted in my dictated progress note. Diagnosis: Problems: (1) Medical clearance for psychiatric admission (2) Anxiety disorder (3) Dementia, vascular, with delusions (4) Dementia, vascular, with depression (5) Dementia in Alzheimer's disease with delusions (6) Dementia in Alzheimer's disease with depression (7) Impulse control disorder ANSON CORMIER MD Mar 29, 2018 21:08
--- NOTE | 2018-03-30 00:03 | PN ---
DATE: 03/28/2018 PSYCHIATRIC PROGRESS NOTE This late entry 03/28/2018 covers elements not covered in my initial note. SUBJECTIVE: I met with the patient in the evening. The patient slept 3 hours previous evening, slept through until about 2 p.m. during the day on 03/28/2018. She remains confused, less sexually inappropriate to male patients. REVIEW OF SYSTEMS: Ambulation impaired with walker. No CV, , pulmonary, eye, ENT system symptoms on review. Reliability poor. MENTAL STATUS EXAM: Oriented to herself. Insight, judgment, recent and remote memory, attention, concentration, fund of knowledge poor, consistent with her diagnosis mentioned in my initial note. PLAN: No change from initial note. We will check labs on 03/30/2018 for the Depakote level, adjust thereafter to reach therapeutic level. MAN Sally CORMIER MD DR: OK/onel JOB#: [id number] / [id number]
[2018-03-30] MEDS ORDERED: DIVA125C2 PO (01:42)
[2018-03-30] MEDS ORDERED: MIRT15TA3 PO (01:43)
[2018-03-30] MEDS ORDERED: METH29OI TP (01:43)
[2018-03-30] MEDS ORDERED: MAGN2400 PO (01:43)
[2018-03-30] MEDS ORDERED: TRAZ-85 PO (01:44)
[2018-03-30] MEDS ORDERED: SERT50TA PO (01:44)
[2018-03-30 05:59] VITALS: BP 160/83
[2018-03-30 06:24] LABS: BASO % 0 % (0-3); EOS # 0.3 x10^3/uL (0.0-0.7); EOS % 2 % (0-3); HEMATOCRIT 34.2 % (36.0-47.0); LYMPH # 2.7 x10^3/uL (1.0-4.8); LYMPH % 24 % (24-48); MEAN CORPUSCULAR HEMOGLOBIN 30 pg (25-35); MEAN CORPUSCULAR HGB CONC 32 g/dL (31-37); MEAN CORPUSCULAR VOLUME 93 fL (79-100); MONO # 1.1 x10^3/uL (0.0-1.1); MONO % 10 % (0-9); NEUT % 63 % (31-73); PLATELET COUNT 247 x10^3/uL (140-400); RED BLOOD COUNT 3.67 x10^6/uL (3.50-5.40); RED CELL DISTRIBUTION WIDTH 14.2 % (11.5-14.5); WHITE BLOOD COUNT 11.1 x10^3/uL (4.0-11.0)
[2018-03-30 06:25] LABS: ALBUMIN 2.9 g/dL (3.4-5.0); ALBUMIN/GLOBULIN RATIO 0.6 (1.0-1.7); ALK PHOS 136 U/L (46-116); ALT (SGPT) 20 U/L (14-59); ANION GAP 4 (6-14); AST (SGOT) 21 U/L (15-37); BLOOD UREA NITROGEN 29 mg/dL (7-20); BUN/CREATININE RATIO 18 (6-20); CALCIUM 9.4 mg/dL (8.5-10.1); CARBON DIOXIDE 34 mmol/L (21-32); CHLORIDE 106 mmol/L (98-107); CREATININE 1.6 mg/dL (0.6-1.0); GFR 30.6; GLUCOSE 97 mg/dL (70-99); POTASSIUM 4.2 mmol/L (3.5-5.1); SODIUM 144 mmol/L (136-145); TOTAL BILIRUBIN 0.2 mg/dL (0.2-1.0); TOTAL PROTEIN 7.5 g/dL (6.4-8.2); VAL ACID 45 mcg/mL (50-100)
[2018-03-30] MEDS: MEMANTINE 10 MG TABLET. PO SCH ×2 (09:47→19:59)
[2018-03-30] MEDS: DONEPEZIL HCL 10 MG TABLET PO SCH (09:47)
[2018-03-30] MEDS: DIVALPROEX 125 MG CAP.SPRINK PO SCH ×3 (09:48→20:00)
[2018-03-30] MEDS: ACETAMINOPHEN 500 MG TABLET PO SCH ×3 (09:48→19:59)
[2018-03-30] MEDS: METOPROLOL SUCC 24HR ER 25 MG TAB.ER.24H. PO SCH (09:48)
[2018-03-30] MEDS: PANTOPRAZOLE 40 MG TABLET. PO SCH (09:48)
[2018-03-30] MEDS: QUEtiapine 50 MG TABLET. PO SCH (09:48)
[2018-03-30] MEDS: SERTRALINE 50 MG TABLET. PO SCH (09:48)
[2018-03-30] MEDS: LACTOBACILLUS RHAMNOSUS GG 1 CAPSULE. PO SCH (09:49)
[2018-03-30] MEDS: LACTASE 3,000 UNIT TABLET PO PRN (09:49)
[2018-03-30 15:42] VITALS: BP 137/74
[2018-03-30] MEDS: MIRTAZAPINE 15 MG TABLET PO SCH (19:59)
[2018-03-30] MEDS: amLODIPine BESYLATE 10 MG TABLET PO SCH (20:00)
--- NOTE | 2018-03-30 20:52 | PDOC ---
Exam Note: Zhang Note: Please also refer to the separate dictated note~for this date of service dictated separately.~Patient seen individually. Discussed the patient with Nursing staff reviewed the chart.~Reviewed interim history and current functioning. Reviewed vital signs,~Labs/ Radiology~and current medications noted below. Continue current treatment with the changes noted in the dictated addendum note Assessment: Vital Signs: Vital Signs Date Time Temp Pulse Resp B/P (MAP) Pulse Ox O2 Delivery O2 Flow Rate FiO2 03/30/18 20:00 85 130/69 03/30/18 15:42 97.0 20 98 03/29/18 19:45 Room Air I&O Intake and Output 03/30/18 07:00 Intake Total 680 ml Balance 680 ml Intake Oral 680 ml # Voids 1 Labs: Laboratory Tests Test 03/30/18 05:59 White Blood Count 11.1 x10^3/uL (4.0-11.0) H Red Blood Count 3.67 x10^6/uL (3.50-5.40) Hemoglobin 11.0 g/dL (12.0-15.5) L Hematocrit 34.2 % (36.0-47.0) L Mean Corpuscular Volume 93 fL (79-100) Mean Corpuscular Hemoglobin 30 pg (25-35) Mean Corpuscular Hemoglobin Concent 32 g/dL (31-37) Red Cell Distribution Width 14.2 % (11.5-14.5) Platelet Count 247 x10^3/uL (140-400) Neutrophils (%) (Auto) 63 % (31-73) Lymphocytes (%) (Auto) 24 % (24-48) Monocytes (%) (Auto) 10 % (0-9) H Eosinophils (%) (Auto) 2 % (0-3) Basophils (%) (Auto) 0 % (0-3) Neutrophils # (Auto) 7.0 x10^3uL (1.8-7.7) Lymphocytes # (Auto) 2.7 x10^3/uL (1.0-4.8) Monocytes # (Auto) 1.1 x10^3/uL (0.0-1.1) Eosinophils # (Auto) 0.3 x10^3/uL (0.0-0.7) Basophils # (Auto) 0.0 x10^3/uL (0.0-0.2) Sodium Level 144 mmol/L (136-145) Potassium Level 4.2 mmol/L (3.5-5.1) Chloride Level 106 mmol/L (98-107) Carbon Dioxide Level 34 mmol/L (21-32) H Anion Gap 4 (6-14) L Blood Urea Nitrogen 29 mg/dL (7-20) H Creatinine 1.6 mg/dL (0.6-1.0) H Estimated GFR (Cockcroft-Gault) 30.6 BUN/Creatinine Ratio 18 (6-20) Glucose Level 97 mg/dL (70-99) Calcium Level 9.4 mg/dL (8.5-10.1) Total Bilirubin 0.2 mg/dL (0.2-1.0) Aspartate Amino Transferase (AST) 21 U/L (15-37) Alanine Aminotransferase (ALT) 20 U/L (14-59) Alkaline Phosphatase 136 U/L (46-116) H Total Protein 7.5 g/dL (6.4-8.2) Albumin 2.9 g/dL (3.4-5.0) L Albumin/Globulin Ratio 0.6 (1.0-1.7) L Valproic Acid Level 45 mcg/mL (50-100) L Valproic Acid Last Dose Date 03/27/2018 Valproic Acid Last Dose Time 0900 Current Medications: Meds: Current Medications Acetaminophen (Tylenol) 650 mg PRN Q6HRS PRN PO PAIN / TEMP; Start 03/14/18 at 22:00; Stop 03/14/18 at 22:25; Status DC Multi-Ingredient Ointment (Analgesic [place]) 1 saumya PRN QID PRN TP MUSCLE PAIN; Start 03/14/18 at 22:00 Al Hydroxide/Mg Hydroxide (Mylanta Plus Xs) 15 ml PRN AFTMEALHC PRN PO DYSPEPSIA; Start 03/14/18 at 22:00; Stop 03/14/18 at 22:25; Status DC Magnesium Hydroxide (Milk Of Magnesia) 2,400 mg PRN QHS PRN PO CONSTIPATION Last administered on 03/28/18at 18:20; Start 03/14/18 at 22:00 Divalproex Sodium (Depakote Sprinkles) 125 mg DAILY@1600 PO Last administered on 03/16/18 15:36; Start 03/15/18 at 16:00; Stop 03/16/18 at 17:18; Status DC Divalproex Sodium (Depakote Sprinkles) 250 mg QHS PO Last administered on 20:00; Start 03/14/18 at 23:00 Lorazepam (Ativan) 0.5 mg PRN BID PRN PO ANXIETY / AGITATION Last administered on 03/19/18 02:45; Start 03/14/18 at 22:30 Memantine (Namenda) 10 mg BID PO Last administered on 03/30/18 19:59; Start at 09:00 Quetiapine Fumarate (SEROquel) 25 mg DAILY PO Last administered on 03/21/18 10 :07; Start 03/15/18 at 09:00; Stop 03/21/18 at 19:16; Status DC Acetaminophen (Tylenol) 650 mg PRN Q4HRS PRN PO PAIN / TEMP; Start 03/14/18 at 22:15 Throat Lozenges (Cepacol Sore Throat Lozenge) 1 pedro PRN Q2HR PRN MM SORE THROAT ; Start 03/14/18 at 22:15 Metoprolol Succinate (Toprol Xl) 25 mg DAILY PO Last administered on 03/30/18 09:48; Start 03/15/18 at 09:00 Simethicone (Gas-X) 80 mg PRN Q6HRS PRN PO GAS / BLOATING; Start 03/14/18 at 22 :15 Acetaminophen (Tylenol) 500 mg TID PO Last administered on 03/30/18 19:59; Start 03/14/18 at 23:00 Amlodipine Besylate (Norvasc) 10 mg DAILY PO Last administered on 03/23/18 08: 06; Start 03/15/18 at 09:00; Stop 03/23/18 at 16:51; Status DC Lactase (Lactaid) 9,000 unit TIDAC PRN PO GI SYMPTOMS Last administered on 03/27 07:44; Start 03/14/18 at 22:15 Al Hydroxide/Mg Hydroxide (Mylanta Plus Xs) 30 ml PRN Q6HRS PRN PO DYSPEPSIA; Start 03/14/18 at 22:15 Pantoprazole Sodium (Protonix) 40 mg DAILYAC PO Last administered on 03/30/18at 09:48; Start 03/15/18 at 07:30 Lactobacillus Rhamnosus (Culturelle) 1 cap DAILY PO Last administered on at 09:49; Start 03/15/18 at 09:00 Donepezil HCl (Aricept) 10 mg DAILY PO Last administered on 03/30/18at 09:47; Start 03/15/18 at 09:00 Influenza Virus Vaccine (Afluria Trivalent [id number] Syringe) 0.5 ml ONCE ONCE VAX IM Last administered on 03/15/18at 15:31; Start 03/15/18 at 14:15; Stop at 14:21; Status DC Divalproex Sodium (Depakote Sprinkles) 250 mg DAILY@1600 PO Last administered on 03/29/18at 16:54; Start 03/17/18 at 16:00 Mirtazapine (Remeron) 7.5 mg QHS PO Last administered on 03/18/18at 20:13; Start 03/16/18 at 21:00; Stop 03/19/18 at 17:04; Status DC Divalproex Sodium (Depakote Sprinkles) 125 mg DAILY PO Last administered on at 07:27; Start 03/17/18 at 09:00; Stop 03/26/18 at 17:57; Status DC Sertraline HCl (Zoloft) 25 mg DAILY PO Last administered on 03/23/18at 08:05; Start 03/18/18 at 09:00; Stop 03/23/18 at 11:51; Status DC Mirtazapine (Remeron) 15 mg QHS PO Last administered on 03/30/18at 19:59; Start 03/19/18 at 21:00 Trazodone HCl (Desyrel) 50 mg PRN QHS PRN PO INSOMNIA, MAY REPEAT X1; Start at 17:15 Amoxicillin/ Clavulanate Potassium (Augmentin 500/ 125mg) 1 tab BID PO Last administered on 03/25/18at 07:51; Start 03/19/18 at 21:00; Stop 03/25/18 at 15:47 ; Status DC Quetiapine Fumarate (SEROquel) 50 mg DAILY PO Last administered on 03/30/18 09 :48; Start 03/22/18 at 09:00 Sertraline HCl (Zoloft) 50 mg DAILY PO Last administered on 03/30/18 09:48; Start 03/24/18 at 09:00 Amlodipine Besylate (Norvasc) 10 mg QHS PO Last administered on 03/30/18at 20:00 ; Start 03/23/18 at 21:00 Divalproex Sodium (Depakote Sprinkles) 250 mg DAILY PO Last administered on 09:48; Start 03/27/18 at 09:00 Active Scripts Active Reported Trazodone Hcl 50 Mg Tablet 50 Mg PO PRN QHS PRN May repeat x1 if first dose ineffective. Zoloft (Sertraline Hcl) 50 Mg Tablet 50 Mg PO DAILY Mirtazapine 15 Mg Tablet 15 Mg PO HS Analgesic [place] (Methyl Salicylate/Menthol) 28 Gm Oint...g. 1 [place] TP PRN QID PRN Milk Of Magnesia (Magnesium Hydroxide) 2,400 Mg/10 Ml Oral.susp 2,400 Mg PO PRN QHS PRN Depakote Sprinkle (Divalproex Sodium) 125 Mg Cap.sprink 250 Mg PO DAILY Florastor (Saccharomyces Boulardii) 250 Mg Capsule 250 Mg PO DAILY Dairy Digest (Lactase) 9,000 Unit Tablet 9,000 Unit PO TIDAC Nexium Capsule (Esomeprazole Magnesium) 40 Mg Capsule.dr 40 Mg PO BID Namzaric 28 mg-10 mg Capsule (Memantine HCl/Donepezil HCl) 1 Each Cap.spr.24 1 Each PO DAILY Acetaminophen 500 Mg Tablet 500 Mg PO TID Rosalia-Lanta Liquid (Mag Hydrox/Al Hydrox/Simeth) 355 Ml Oral.susp 30 Ml PO PRN Q6HRS PRN Simethicone 80 Mg Tab.chew 80 Mg PO PRN Q6HRS PRN Cepacol Sore Throat Lozenge (Benzocaine/Menthol) 1 Each Lozenge 1 Each MM PRN Q2HR PRN Tylenol (Acetaminophen) 325 Mg Tablet 650 Mg PO PRN Q4HRS PRN Norvasc (Amlodipine Besylate) 10 Mg Tablet 10 Mg PO HS Metoprolol Succinate ( Xl ) (Metoprolol Succinate) 25 Mg Tab.er.24h 25 Mg PO DAILY Seroquel (Quetiapine Fumarate) 25 Mg Tablet 50 Mg PO DAILY Depakote Sprinkle (Divalproex Sodium) 125 Mg Cap.sprink 250 Mg PO QHS Depakote Sprinkle (Divalproex Sodium) 125 Mg Cap.sprink 250 Mg PO DAILY@1600 Ativan (Lorazepam) 0.5 Mg Tablet 0.5 Mg PO PRN BID PRN I have reviewed the current psychotropics carefully including drug interactions. Risk benefit ratio favors no change other than as noted in my dictated progress note. Diagnosis: Problems: (1) Medical clearance for psychiatric admission (2) Anxiety disorder (3) Dementia, vascular, with delusions (4) Dementia, vascular, with depression (5) Dementia in Alzheimer's disease with delusions (6) Dementia in Alzheimer's disease with depression (7) Impulse control disorder ANSON CORMIER MD Mar 30, 2018 20:52
--- NOTE | 2018-03-30 23:12 | PN ---
DATE: 03/30/2018 SUBJECTIVE: The patient's white cell count was noted to be high at 12,400 and therefore we did a chest x-ray as part of investigation to see if there is any possibility that she might have pneumonia. Her chest x-ray showed that she has moderate left mid lung opacity with diagnostic consideration including a pulmonary neoplasm versus pneumonia and radiologist recommends CT scanning of the chest for further evaluation. The patient, however, remained hemodynamically stable, afebrile. She is maintaining up to her oxygen saturation between 92-96% on room air. Her white cell count is actually turning the corner is down to 11,200 and therefore, I will withhold any further workup. She will be discharged back tomorrow to [facility] and the facility need to be notified about this abnormal finding in her chest x-ray to decide to if they want to investigate her further as an outpatient. FELIX CORREA MD DR: BEN/onel JOB#: [id number] / [id number]
--- NOTE | 2018-03-30 23:12 | PN ---
DATE: 03/29/2018 This is a late entry for 03/29/2018 covers elements not covered in my initial note. SUBJECTIVE: I met with the patient in the evening. The patient slept 8 hours previous night, was agitated in the morning, was ramming her walker against the wall in the hallway previous night, had to be in the [place] to remove her from stimuli around other patients. She did have a fall the day before Dr. Garcia was consulted. CMP and chest x-ray are unremarkable. REVIEW OF SYSTEMS: Ambulation impaired with walker. No CV, , pulmonary, eye, ENT system symptoms on review. MENTAL STATUS EXAM: Oriented to herself. Insight, judgment, recent and remote memory, attention, concentration, fund of knowledge poor, consistent with her diagnosis mentioned in my initial note. PLAN: No change from initial note. MAN Sally CORMIER MD DR: OK/onel JOB#: [id number] / [id number]
[2018-03-31] MEDS: LORazepam 0.5 MG TABLET PO PRN (04:29)
[2018-03-31 05:47] VITALS: BP 149/77
[2018-03-31] MEDS: ACETAMINOPHEN 500 MG TABLET PO SCH (08:02)
[2018-03-31] MEDS: DIVALPROEX 125 MG CAP.SPRINK PO SCH (08:02)
[2018-03-31] MEDS: MEMANTINE 10 MG TABLET. PO SCH (08:02)
[2018-03-31 08:04] VITALS: BP 149/77
[2018-03-31] MEDS: QUEtiapine 50 MG TABLET. PO SCH (08:04)
[2018-03-31] MEDS: METOPROLOL SUCC 24HR ER 25 MG TAB.ER.24H. PO SCH (08:04)
[2018-03-31] MEDS: SERTRALINE 50 MG TABLET. PO SCH (08:04)
[2018-03-31] MEDS: LACTOBACILLUS RHAMNOSUS GG 1 CAPSULE. PO SCH (08:04)
--- NOTE | 2018-03-31 20:31 | PDOC ---
Exam Note: Zhang Note: Please also refer to the separate dictated note~for this date of service dictated separately.~Patient seen individually. Discussed the patient with Nursing staff reviewed the chart.~Reviewed interim history and current functioning. Reviewed vital signs,~Labs/ Radiology~and current medications noted below. Continue current treatment with the changes noted in the dictated addendum note Assessment: Vital Signs: Vital Signs Date Time Temp Pulse Resp B/P (MAP) Pulse Ox O2 Delivery O2 Flow Rate FiO2 03/31/18 08:04 81 149/77 03/31/18 05:47 97.5 18 93 Room Air I&O Intake and Output 03/31/18 07:00 Intake Total 420 ml Balance 420 ml Intake Oral 420 ml # Voids 1 # Bowel Movements 2 Current Medications: Meds: Current Medications Acetaminophen (Tylenol) 650 mg PRN Q6HRS PRN PO PAIN / TEMP; Start 03/14/18 at 22:00; Stop 03/14/18 at 22:25; Status DC Multi-Ingredient Ointment (Analgesic [place]) 1 saumya PRN QID PRN TP MUSCLE PAIN; Start 03/14/18 at 22:00; Stop 03/31/18 at 10:39; Status DC Al Hydroxide/Mg Hydroxide (Mylanta Plus Xs) 15 ml PRN AFTMEALHC PRN PO DYSPEPSIA; Start 03/14/18 at 22:00; Stop 03/14/18 at 22:25; Status DC Magnesium Hydroxide (Milk Of Magnesia) 2,400 mg PRN QHS PRN PO CONSTIPATION Last administered on 03/28/18at 18:20; Start 03/14/18 at 22:00; Stop 03/31/18 at 10:39; Status DC Divalproex Sodium (Depakote Sprinkles) 125 mg DAILY@1600 PO Last administered on 03/16/18at 15:36; Start 03/15/18 at 16:00; Stop 03/16/18 at 17:18; Status DC Divalproex Sodium (Depakote Sprinkles) 250 mg QHS PO Last administered on at 20:00; Start 03/14/18 at 23:00; Stop 03/31/18 at 10:39; Status DC Lorazepam (Ativan) 0.5 mg PRN BID PRN PO ANXIETY / AGITATION Last administered on 03/31/18 04:29; Start 03/14/18 at 22:30; Stop 03/31/18 at 10:39; Status DC Memantine (Namenda) 10 mg BID PO Last administered on 03/31/18 08:02; Start at 09:00; Stop 03/31/18 at 10:39; Status DC Quetiapine Fumarate (SEROquel) 25 mg DAILY PO Last administered on 03/21/18at 10 :07; Start 03/15/18 at 09:00; Stop 03/21/18 at 19:16; Status DC Acetaminophen (Tylenol) 650 mg PRN Q4HRS PRN PO PAIN / TEMP; Start 03/14/18 at 22:15; Stop 03/31/18 at 10:39; Status DC Throat Lozenges (Cepacol Sore Throat Lozenge) 1 pedro PRN Q2HR PRN MM SORE THROAT ; Start 03/14/18 at 22:15; Stop 03/31/18 at 10:39; Status DC Metoprolol Succinate (Toprol Xl) 25 mg DAILY PO Last administered on 03/31/18 08:04; Start 03/15/18 at 09:00; Stop 03/31/18 at 10:39; Status DC Simethicone (Gas-X) 80 mg PRN Q6HRS PRN PO GAS / BLOATING; Start 03/14/18 at 22 :15; Stop 03/31/18 at 10:39; Status DC Acetaminophen (Tylenol) 500 mg TID PO Last administered on 03/31/18at 08:02; Start 03/14/18 at 23:00; Stop 03/31/18 at 10:39; Status DC Amlodipine Besylate (Norvasc) 10 mg DAILY PO Last administered on 03/23/18at 08: 06; Start 03/15/18 at 09:00; Stop 03/23/18 at 16:51; Status DC Lactase (Lactaid) 9,000 unit TIDAC PRN PO GI SYMPTOMS Last administered on 03/27at 07:44; Start 03/14/18 at 22:15; Stop 03/31/18 at 10:39; Status DC Al Hydroxide/Mg Hydroxide (Mylanta Plus Xs) 30 ml PRN Q6HRS PRN PO DYSPEPSIA; Start 03/14/18 at 22:15; Stop 03/31/18 at 10:39; Status DC Pantoprazole Sodium (Protonix) 40 mg DAILYAC PO Last administered on 03/30/18at 09:48; Start 03/15/18 at 07:30; Stop 03/31/18 at 10:39; Status DC Lactobacillus Rhamnosus (Culturelle) 1 cap DAILY PO Last administered on at 08:04; Start 03/15/18 at 09:00; Stop 03/31/18 at 10:39; Status DC Donepezil HCl (Aricept) 10 mg DAILY PO Last administered on 03/30/18at 09:47; Start 03/15/18 at 09:00; Stop 03/31/18 at 10:39; Status DC Influenza Virus Vaccine (Afluria Trivalent [id number] Syringe) 0.5 ml ONCE ONCE VAX IM Last administered on 03/15/18at 15:31; Start 03/15/18 at 14:15; Stop at 14:21; Status DC Divalproex Sodium (Depakote Sprinkles) 250 mg DAILY@1600 PO Last administered on 03/29/18at 16:54; Start 03/17/18 at 16:00; Stop 03/31/18 at 10:39; Status DC Mirtazapine (Remeron) 7.5 mg QHS PO Last administered on 03/18/18at 20:13; Start 03/16/18 at 21:00; Stop 03/19/18 at 17:04; Status DC Divalproex Sodium (Depakote Sprinkles) 125 mg DAILY PO Last administered on at 07:27; Start 03/17/18 at 09:00; Stop 03/26/18 at 17:57; Status DC Sertraline HCl (Zoloft) 25 mg DAILY PO Last administered on 03/23/18at 08:05; Start 03/18/18 at 09:00; Stop 03/23/18 at 11:51; Status DC Mirtazapine (Remeron) 15 mg QHS PO Last administered on 03/30/18at 19:59; Start 03/19/18 at 21:00; Stop 03/31/18 at 10:39; Status DC Trazodone HCl (Desyrel) 50 mg PRN QHS PRN PO INSOMNIA, MAY REPEAT X1; Start at 17:15; Stop 03/31/18 at 10:39; Status DC Amoxicillin/ Clavulanate Potassium (Augmentin 500/ 125mg) 1 tab BID PO Last administered on 03/25/18at 07:51; Start 03/19/18 at 21:00; Stop 03/25/18 at 15:47 ; Status DC Quetiapine Fumarate (SEROquel) 50 mg DAILY PO Last administered on 03/31/18at 08 :04; Start 03/22/18 at 09:00; Stop 03/31/18 at 10:39; Status DC Sertraline HCl (Zoloft) 50 mg DAILY PO Last administered on 03/31/18at 08:04; Start 03/24/18 at 09:00; Stop 03/31/18 at 10:39; Status DC Amlodipine Besylate (Norvasc) 10 mg QHS PO Last administered on 03/30/18at 20:00 ; Start 03/23/18 at 21:00; Stop 03/31/18 at 10:39; Status DC Divalproex Sodium (Depakote Sprinkles) 250 mg DAILY PO Last administered on 03/31/18at 08:02; Start 03/27/18 at 09:00; Stop 03/31/18 at 10:39; Status DC Active Scripts Active Reported Trazodone Hcl 50 Mg Tablet 50 Mg PO PRN QHS PRN May repeat x1 if first dose ineffective. Zoloft (Sertraline Hcl) 50 Mg Tablet 50 Mg PO DAILY Mirtazapine 15 Mg Tablet 15 Mg PO HS Analgesic [place] (Methyl Salicylate/Menthol) 28 Gm Oint...g. 1 Saum[place] TP PRN QID PRN Milk Of Magnesia (Magnesium Hydroxide) 2,400 Mg/10 Ml Oral.susp 2,400 Mg PO PRN QHS PRN Depakote Sprinkle (Divalproex Sodium) 125 Mg Cap.sprink 250 Mg PO DAILY Florastor (Saccharomyces Boulardii) 250 Mg Capsule 250 Mg PO DAILY Dairy Digest (Lactase) 9,000 Unit Tablet 9,000 Unit PO TIDAC Nexium Capsule (Esomeprazole Magnesium) 40 Mg Capsule.dr 40 Mg PO BID Namzaric 28 mg-10 mg Capsule (Memantine HCl/Donepezil HCl) 1 Each Cap.spr.24 1 Each PO DAILY Acetaminophen 500 Mg Tablet 500 Mg PO TID Rosalia-Lanta Liquid (Mag Hydrox/Al Hydrox/Simeth) 355 Ml Oral.susp 30 Ml PO PRN Q6HRS PRN Simethicone 80 Mg Tab.chew 80 Mg PO PRN Q6HRS PRN Cepacol Sore Throat Lozenge (Benzocaine/Menthol) 1 Each Lozenge 1 Each MM PRN Q2HR PRN Tylenol (Acetaminophen) 325 Mg Tablet 650 Mg PO PRN Q4HRS PRN Norvasc (Amlodipine Besylate) 10 Mg Tablet 10 Mg PO HS Metoprolol Succinate ( Xl ) (Metoprolol Succinate) 25 Mg Tab.er.24h 25 Mg PO DAILY Seroquel (Quetiapine Fumarate) 25 Mg Tablet 50 Mg PO DAILY Depakote Sprinkle (Divalproex Sodium) 125 Mg Cap.sprink 250 Mg PO QHS Depakote Sprinkle (Divalproex Sodium) 125 Mg Cap.sprink 250 Mg PO DAILY@1600 Ativan (Lorazepam) 0.5 Mg Tablet 0.5 Mg PO PRN BID PRN I have reviewed the current psychotropics carefully including drug interactions. Risk benefit ratio favors no change other than as noted in my dictated progress note. 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
--- NOTE | 2018-04-01 04:17 | PN ---
DATE: 03/30/2018 This is a late entry for 03/30/2018 covers elements not covered in my initial note. SUBJECTIVE: I met with the patient in the evening, staffed at a treatment team meeting with the entire team in the morning. The patient remains confused, not sexually inappropriate, which is better from admission. REVIEW OF SYSTEMS: Ambulation impaired with walker. No CV, , pulmonary, eye, ENT system symptoms on review. Reliability poor. MENTAL STATUS EXAM: Oriented to herself. Insight, judgment, recent and remote memory, attention, concentration, fund of knowledge poor, consistent with her diagnosis mentioned in my initial note. PLAN: No change from initial note, discharge possibly on 03/31/2018. ANSON CORMIER MD DR: OK/onel JOB#: [id number] / [id number]
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
== END 2018-03-31 10:00 | DRG 57 ==
LOC: ER 17:35 → GEROPSY 21:14
PROVIDERS: ADMIT Psychiatry & Neurology Psychiatry; ATTEND Psychiatry & Neurology Psychiatry
DX: G30.9 Alzheimer's disease, unspecified (principal); F01.51 Vascular dementia, unspecified severity, with behavioral disturbance; F02.81 Dementia in other diseases classified elsewhere, unspecified severity, with behavioral disturbance; N17.9 Acute kidney failure, unspecified; E78.5 Hyperlipidemia, unspecified; F41.9 Anxiety disorder, unspecified; F32.9 Major depressive disorder, single episode, unspecified; F63.9 Impulse disorder, unspecified; H35.30 Unspecified macular degeneration; K21.9 Gastro-esophageal reflux disease without esophagitis; I12.9 Hypertensive chronic kidney disease with stage 1 through stage 4 chronic kidney disease, or unspecified chronic kidney disease; G47.00 Insomnia, unspecified; K44.9 Diaphragmatic hernia without obstruction or gangrene; N18.9 Chronic kidney disease, unspecified; Z66 Do not resuscitate; Z79.899 Other long term (current) drug therapy; Z87.891 Personal history of nicotine dependence
CPT/HCPCS: 36415; 71045; 80048; 80053; 80061; 80164; 81001; 82140; 83036; 83735; 84443; 85025; 87086; 87186; 90471; 90756; 93005; 99285-25; Q2035